=== PATIENT | male | born 1955 | race Caucasian/White ===

== ENCOUNTER 2022-02-15 21:03 | Inpatient (IN) | payer OTHER ==
[2022-02-15 23:55] LABS: Basophils % (A) 1 %; Eosinophils # (A) 0.2 k/uL (0-0.7); Eosinophils % (A) 4 %; HCT 41.5 % (39.0-53.0); HGB 13.7 gm/dL (13.0-17.5); Lymphocytes # (A) 0.8 k/uL (1.0-4.8); Lymphocytes % (A) 15 %; MCH 31.7 pg (25.0-35.0); MCV 96.1 fL (80.0-100.0); Mean Platelet Volume 6.8; Monocytes # (A) 0.4 k/uL (0-1.0); Monocytes % (A) 8 %; Neutrophils # (A) 3.8 k/uL (1.3-7.7); Neutrophils % (A) 70 %; Platelet Count 204 k/uL (150-450); RBC 4.32 m/uL (4.30-5.90); RDW 12.6 % (11.5-15.5); WBC 5.5 k/uL (3.8-10.6)
--- NOTE | 2022-02-15 23:56 | ED ---
Neuro HPI - General Chief Complaint: Neuro Symptoms/Deficit Stated Complaint: R sided numbness Time Seen by Provider: 02/15/22 22:35 Source: patient Mode of arrival: ambulatory - History of Present Illness Is the patient presenting with stroke symptoms?: Yes Initial Comments: 66-year-old male with no reported past medical history presents to the emergency department with right-sided numbness. He states that for the past 3 days his right arm, right leg and right side of his face have all been numb. He denies previous history of stroke area does admit to some weakness in these extremities. No visual changes. No speech difficulty. He denies any recent head trauma. No neck pain. No fevers. [place] today was the worst of his symptoms and this is what prompted ER evaluation. Denies any chest pain or shortness of breath. No abdominal pain. Patient is a daily drinker. 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 - Related Data Home Medications: Previous Rx's Medication Instructions Recorded Aspirin 81 mg PO DAILY #30 02/18/22 Atorvastatin [Lipitor] 20 mg PO HS #30 tab 02/18/22 Clopidogrel [Plavix] 75 mg PO DAILY #21 tab 02/18/22 Cyanocobalamin [Vitamin B-12] 1,000 mcg PO DAILY #30 tab 02/18/22 Folic Acid 1 mg PO DAILY #30 tab 02/18/22 Gabapentin [Neurontin] 100 mg PO TID #90 cap 02/18/22 Thiamine [Vitamin B-1] 100 mg PO BID-W/MEALS #60 tab 02/18/22 amLODIPine [Norvasc] 10 mg PO DAILY #30 tab 02/18/22 lisinopriL [Zestril] 5 mg PO DAILY #30 tab 02/18/22 Allergies/Adverse Reactions: Allergies Allergy/AdvReac Type Severity Reaction Status Date / Time No Known Allergies Allergy Verified 02/15/22 23:10 Review of Systems ROS Statement: Those systems with pertinent positive or pertinent negative responses have been documented in the HPI. ROS Other: All systems not noted in ROS Statement are negative. General Exam General appearance: alert, in no apparent distress Head exam: Present: atraumatic, normocephalic, normal inspection Eye exam: Present: normal appearance, PERRL, EOMI. Absent: scleral icterus, conjunctival injection, periorbital swelling ENT exam: Present: normal exam, mucous membranes moist Neck exam: Present: normal inspection. Absent: tenderness, meningismus, lymphadenopathy Respiratory exam: Present: normal lung sounds bilaterally. Absent: respiratory distress, wheezes, rales, rhonchi, stridor Cardiovascular Exam: Present: regular rate, normal rhythm, normal heart sounds. Absent: systolic murmur, diastolic murmur, rubs, gallop, clicks GI/Abdominal exam: Present: soft, normal bowel sounds. Absent: distended, tenderness, guarding, rebound, rigid Extremities exam: Present: normal inspection, full ROM, normal capillary refill. Absent: tenderness, pedal edema, joint swelling, calf tenderness Back exam: Present: normal inspection Neurological exam: Present: alert, oriented X3, CN II-XII intact Psychiatric exam: Present: normal affect, normal mood Skin exam: Present: warm, dry, intact, normal color. Absent: rash Stroke [facility] - Lab Data Result diagrams: 02/17/22 05:01 02/17/22 05:01 Lab Results 02/15/22 02/15/22 02/15/22 Range/Units 23:43 23:43 23:43 WBC 5.5 (3.8-10.6) k/uL RBC 4.32 (4.30-5.90) m/uL Hgb 13.7 (13.0-17.5) gm/dL Hct 41.5 (39.0-53.0) % MCV 96.1 (80.0-100.0) fL MCH 31.7 (25.0-35.0) pg MCHC 33.0 (31.0-37.0) g/dL RDW 12.6 (11.5-15.5) % Plt Count 204 (150-450) k/uL MPV 6.8 Neutrophils % 70 % Lymphocytes % 15 % Monocytes % 8 % Eosinophils % 4 % Basophils % 1 % Neutrophils # 3.8 (1.3-7.7) k/uL Lymphocytes # 0.8 L (1.0-4.8) k/uL Monocytes # 0.4 (0-1.0) k/uL Eosinophils # 0.2 (0-0.7) k/uL Basophils # 0.0 (0-0.2) k/uL PT 10.3 (9.0-12.0) sec INR 0.9 (<1.2) APTT 24.9 (22.0-30.0) sec Sodium 123 L (137-145) mmol/L Potassium 4.2 (3.5-5.1) mmol/L Chloride 92 L (98-107) mmol/L Carbon Dioxide 21 L (22-30) mmol/L Anion Gap 10 mmol/L BUN 8 L (9-20) mg/dL Creatinine 0.88 (0.66-1.25) mg/dL Est GFR (CKD-EPI)AfAm >90 (>60 ml/min/1.73 sqM) Est GFR (CKD-EPI)NonAf >90 (>60 ml/min/1.73 sqM) Glucose 124 H (74-99) mg/dL Calcium 8.6 (8.4-10.2) mg/dL Total Bilirubin 0.6 (0.2-1.3) mg/dL AST 27 (17-59) U/L ALT 16 (4-49) U/L Alkaline Phosphatase 77 (38-126) U/L Troponin I (0.000-0.034) ng/mL Total Protein 7.6 (6.3-8.2) g/dL Albumin 4.0 (3.5-5.0) g/dL 02/15/22 Range/Units 23:43 WBC (3.8-10.6) k/uL RBC (4.30-5.90) m/uL Hgb (13.0-17.5) gm/dL Hct (39.0-53.0) % MCV (80.0-100.0) fL MCH (25.0-35.0) pg MCHC (31.0-37.0) g/dL RDW (11.5-15.5) % Plt Count (150-450) k/uL MPV Neutrophils % % Lymphocytes % % Monocytes % % Eosinophils % % Basophils % % Neutrophils # (1.3-7.7) k/uL Lymphocytes # (1.0-4.8) k/uL Monocytes # (0-1.0) k/uL Eosinophils # (0-0.7) k/uL Basophils # (0-0.2) k/uL PT (9.0-12.0) sec INR (<1.2) APTT (22.0-30.0) sec Sodium (137-145) mmol/L Potassium (3.5-5.1) mmol/L Chloride (98-107) mmol/L Carbon Dioxide (22-30) mmol/L Anion Gap mmol/L BUN (9-20) mg/dL Creatinine (0.66-1.25) mg/dL Est GFR (CKD-EPI)AfAm (>60 ml/min/1.73 sqM) Est GFR (CKD-EPI)NonAf (>60 ml/min/1.73 sqM) Glucose (74-99) mg/dL Calcium (8.4-10.2) mg/dL Total Bilirubin (0.2-1.3) mg/dL AST (17-59) U/L ALT (4-49) U/L Alkaline Phosphatase (38-126) U/L Troponin I <0.012 (0.000-0.034) ng/mL Total Protein (6.3-8.2) g/dL Albumin (3.5-5.0) g/dL - Medical Decision Making Upon arrival patient was placed into room 17. Symptoms are 3 days old and therefore code stroke was not activated. He does have a score of 1 on the NIH scale due to his subjective sensory loss. IV is established and laboratory studies were conducted. Patient was over for a CT of his brain as well as CT angiography. Review the patient's labs demonstrates sodium of 123. He was given a liter bolus of normal saline started on [address] of the brain is negative for an acute process. Recommend admission. Spoke with Dr. Sousa who agreed to admit the patient. We'll place neurology on consult. Patient remained in stable condition awaiting a bed on the floor 02/15/22 23:56 EKG demonstrates sinus rhythm with rate of 82. Purulent: 58. QRS 93. QTC of 43. No acute ST segment elevations or depressions Past Medical History Past Medical History: No Reported History History of Any Multi-Drug Resistant Organisms: None Reported Past Surgical History: No Surgical Hx Reported Past Psychological History: No Psychological Hx Reported Smoking Status: Never smoker Past Alcohol Use History: Daily Past Drug Use History: None Reported - Past Family History Father Family Medical History: Congestive Heart Failure (CHF) Course Vital Signs 02/15/22 02/16/22 02/16/22 22:34 00:27 04:10 Temperature 98.2 F 98.2 F Pulse Rate 103 H 86 76 Respiratory 18 18 18 Rate Blood Pressure 203/92 183/86 173/83 O2 Sat by Pulse 97 97 98 Oximetry 02/16/22 06:20 Temperature Pulse Rate 73 Respiratory 18 Rate Blood Pressure 160/79 O2 Sat by Pulse 97 Oximetry Disposition Clinical Impression: Hyponatremia, Right sided numbness, CVA (cerebral vascular accident) Disposition: ADMITTED IP TO THIS [facility] Condition: Good Is patient prescribed a controlled substance at d/c from ED?: No Decision to Admit Reason: Admit from EC Decision Date: 02/16/22 Decision Time: 00:51
[2022-02-16 00:09] LABS: ALT 16 U/L (4-49); AST 27 U/L (17-59); African American GFR (CKD) >90 (>60 ml/min/1.73 sqM); Alkaline Phosphatase 77 U/L (38-126); Anion Gap 10 mmol/L; Blood Urea Nitrogen 8 mg/dL (9-20); Calcium 8.6 mg/dL (8.4-10.2); Carbon Dioxide 21 mmol/L (22-30); Chloride 92 mmol/L (98-107); Glucose 124 mg/dL (74-99); INR 0.9 (<1.2); Non-African American GFR(CKD) >90 (>60 ml/min/1.73 sqM); Partial Thromboplastin Time 24.9 sec (22.0-30.0); Potassium 4.2 mmol/L (3.5-5.1); Prothrombin Time 10.3 sec (9.0-12.0); Sodium 123 mmol/L (137-145); Total Bilirubin 0.6 mg/dL (0.2-1.3); Total Protein 7.6 g/dL (6.3-8.2)
--- NOTE | 2022-02-16 00:11 | CT ---
EXAMINATION TYPE: CT brain wo con DATE OF EXAM: 02/16/2022 COMPARISON: None HISTORY: rt sided numbness progressively getting worse CT DLP: 1091.2 mGycm Automated exposure control for dose reduction was used. There is cerebral mild cortical atrophy. There is no mass effect or midline shift. There is no sign o f intracranial hemorrhage. Calvarium is intact. IMPRESSION: Negative unenhanced head CT scan. Mild atrophy.
--- NOTE | 2022-02-16 00:30 | XR ---
EXAMINATION TYPE: XR chest 1V DATE OF EXAM: 02/16/2022 COMPARISON: NONE HISTORY: Right-sided numbness TECHNIQUE: Single view FINDINGS: Heart and mediastinum are normal. Lungs are clear. Diaphragm is normal. Bony thorax appears intact. There are chest leads. IMPRESSION: Normal chest.
[2022-02-16] MEDS ORDERED: SODIUM CHLORIDE 0.9% 1,000 ML IV ONE (00:45)
--- NOTE | 2022-02-16 00:45 | CT ---
EXAMINATION TYPE: CT angio head neck DATE OF EXAM: 02/16/2022 COMPARISON: None HISTORY: rt sided numbness progressively getting worse CT DLP: 422.7 mGycm Automated exposure control for dose reduction was used. CONTRAST: Performed with IV Contrast, patient injected with 65 mL of Isovue 370. Images obtained from the great vessels to the vertex of the brain with IV contrast. There are Three-D postprocessed images. FINDINGS: There is bilateral arterial flow in the subclavian arteries. There is arterial flow in the common int ernal and external carotid arteries bilaterally. There is arterial flow in both vertebral arteries. T here is plaque formation and approximate 25% stenosis at the origin right internal card artery. There is 50% stenosis at the origin right external carotid artery. There is mild plaque and 15% stenosis o rigin of the left internal carotid artery. There is no evidence of carotid or vertebral artery aneury sm or dissection. There is arterial flow in both distal internal coronary arteries. There is arterial flow in the anterior middle and posterior cerebral arteries bilaterally. No evidenc e of intracranial aneurysm or neovascularity. There is a diminutive A1 segment of the right anterior cerebral artery. The right anterior cerebral artery probably fills significantly through the anterior communicating artery. The posterior cerebral arteries appear to fill dominantly through the posterio r communicating arteries. There is normal enhancement of the venous sinuses. IMPRESSION: Mild plaque at the carotid artery bifurcations with luminal narrowing as above. No hemodynamic stenos is of the internal carotid arteries. There is significant luminal narrowing of the A1 segment right anterior cerebral artery which is almo st occluded. It is not clear if this is acquired stenosis or developmental.
[2022-02-16] MEDS ORDERED: NALOXONE 0.4 MG/ML 1 ML VIAL IV PRN (00:52)
[2022-02-16] MEDS: SODIUM CHLORIDE 0.9% 1,000 ML IV SCH ×2 (01:04→15:15)
[2022-02-16 01:14] LABS: Appearance,Urine Clear (Clear); Bilirubin,Urine Negative (Negative); Blood,Urine Negative (Negative); Color,Urine Light Yellow; Glucose,Urine (UA) Negative (Negative); Ketones,Urine Negative (Negative); Leukocyte Esterase,Urine Trace (Negative); Mucus,Urine Rare /hpf; Nitrite,Urine Negative (Negative); Protein,Urine Negative (Negative); RBC,Urine <1 /hpf (0-5); Specific Gravity,Urine 1.013 (1.001-1.035); Urobilinogen,Urine <2.0 mg/dL (<2.0); WBC,Urine 3 /hpf (0-5)
[2022-02-16] MEDS ORDERED: ASPIRIN 325 MG TAB PO STA (01:14)
[2022-02-16 01:22] LABS: Creatinine,Urine Random 23.3 mg/dL
--- NOTE | 2022-02-16 03:24 | P.HPIM ---
History of Present Illness H&P Date: 02/16/22 The patient is a 66-year-old male with no known PMH, who hasn't seen a physician for several years presents to the emergency room with complaints of right-sided numbness and tingling. The patient reported that his symptoms started roughly 3 days ago with intermittent right arm, right leg, and right lower lip numbness. He notes that the numbness became more persistent throughout the day yesterday, at which time he became alarmed and decided to come to the emergency room. Denied experiencing weakness, facial droop, speech impairment, difficulty swallowing. Reports some blurred vision on the right side. Denied headaches, neck pain, falls, impaired gait, or head injury. Reports that following presentation to the emergency room, his numbness of gradually improved. Denied experiencing chest discomfort, shortness of breath, fever, chills, cough or nausea, vomiting, abdominal pain, diarrhea. Denies any history of prior CVA. Reports drinking 10-12 beers daily but denies hospitalizations for his drinking, alcohol withdrawal seizures, or history of delirium tremens. The patient's NIH score in the emergency room was 1, and due to the delayed presentation, code stroke without activated. CT head and neck angiogram revealed mild plaque at the carotid artery bifurcations with luminal narrowing without any hemodynamic stenosis of the carotid arteries. There was also a near occlusion of a segment of the right anterior cerebral artery, unclear if acquired stenosis or developmental. CT brain was unremarkable. EKG revealed sinus rhythm at [address]/T-wave changes noted as reviewed by me. Chest x-ray was unremarkable. Laboratory evaluation revealed a sodium of 123, chloride 92, CO2 21, glucose of 124. Review of systems: Pertinent positives and negatives as discussed in HPI, a complete review of systems was performed and all other systems are negative. Physical examination: General: non toxic, no distress, appears at stated age, overweight Derm: no unusual rashes/lesions no unusual ecchymoses, warm, dry Head: atraumatic, normocephalic, symmetric Eyes: EOMI, no lid lag, anicteric sclera, pupils equal round reactive to light ENT: Nose and ears atraumatic, no thrush, no pharyngeal erythema Neck: No thyromegaly, no cervical lymphadenopathy, trachea midline, supple Mouth: no lip lesion, mucus membranes moist Cardiovascular: S1S2 reg, no murmur, positive posterior tibial pulse bilateral, no edema, capillary refill less than 2 seconds Lungs: CTA bilateral, no rhonchi, no rales , no accessory muscle use Abdominal: soft, nontender to palpation, no guarding, no appreciable organomegaly, normal bowel sounds Ext: no gross muscle atrophy, muscle strength 5 out of 5 in all 4 extremities grossly, no contractures, Neuro: CN II-XI grossly intact, light touch intact in all 4 extremities, finger to nose within normal limits,, no pronator drift Psych: Alert, oriented, appropriate affect Assessment/plan Rule out CVA -Neurology consult -Echocardiogram -Continue with aspirin, statin -Fall precautions Hyponatremia, hypochloremic -Follow up Hyponatremia workup -Suspected beer potomania -C/w IVFs EtOH abuse -CIWA protocol -Thiamine, IV fluids DVT prophylaxis -Heparin subq The patient is admitted with an anticipated greater than 2 midnight stay for dayna luation of CVA CODE STATUS: Full Code Discussed with: Patient Anticipated discharge date: 02/[address]: Home Past Medical History Past Medical History: No Reported History History of Any Multi-Drug Resistant Organisms: None Reported Past Surgical History: No Surgical Hx Reported Past Psychological History: No Psychological Hx Reported Smoking Status: Never smoker Past Alcohol Use History: Daily Past Drug Use History: None Reported - Past Family History Father Family Medical History: Congestive Heart Failure (CHF) Medications and Allergies Home Medications Medication Instructions Recorded Confirmed Type No Known Home Medications 02/15/22 02/15/22 History Allergies Allergy/AdvReac Type Severity Reaction Status Date / Time No Known Allergies Allergy Verified 02/15/22 23:10 Physical Exam Vitals: Vital Signs Temp Pulse Resp BP Pulse Ox 02/16/22 00:27 86 18 183/86 97 02/15/22 22:34 98.2 F 103 H 18 203/92 97 Intake and Output 02/15/22 02/15/22 02/16/22 14:59 22:59 06:59 Other: Weight 72.575 kg Results CBC & Chem 7: 02/15/22 23:43 02/15/22 23:43 Labs: Abnormal Lab Results - Last 24 Hours (Table) 02/15/22 02/15/22 02/16/22 Range/Units 23:43 23:43 00:55 Lymphocytes # 0.8 L (1.0-4.8) k/uL Sodium 123 L (137-145) mmol/L Chloride 92 L (98-107) mmol/L Carbon Dioxide 21 L (22-30) mmol/L BUN 8 L (9-20) mg/dL Glucose 124 H (74-99) mg/dL Osmolality (280-301) mosm/kg Ur Leukocyte Esterase Trace H (Negative) Urine Mucus Rare H (None) /hpf 02/16/22 Range/Units 00:55 Lymphocytes # (1.0-4.8) k/uL Sodium (137-145) mmol/L Chloride (98-107) mmol/L Carbon Dioxide (22-30) mmol/L BUN (9-20) mg/dL Glucose (74-99) mg/dL Osmolality 262 L (280-301) mosm/kg Ur Leukocyte Esterase (Negative) Urine Mucus (None) /hpf
[2022-02-16] MEDS ORDERED: LORazepam 2 MG/ML INJ IV PRN ×3 (03:25)
[2022-02-16] MEDS ORDERED: THIAMINE 100 MG/ML 2 ML VIAL IM STA (03:25)
[2022-02-16 06:17] LABS: African American GFR (CKD) >90 (>60 ml/min/1.73 sqM); Anion Gap 9 mmol/L; Blood Urea Nitrogen 7 mg/dL (9-20); Calcium 8.5 mg/dL (8.4-10.2); Carbon Dioxide 20 mmol/L (22-30); Chloride 100 mmol/L (98-107); Glucose 128 mg/dL (74-99); Non-African American GFR(CKD) 89 (>60 ml/min/1.73 sqM); Potassium 4.5 mmol/L (3.5-5.1); Sodium 129 mmol/L (137-145)
[2022-02-16] MEDS ORDERED: ASPIRIN 325 MG TAB PO SCH (09:00)
[2022-02-16] MEDS: hydrALAZINE HCL 25 MG TAB PO PRN ×2 (10:33→15:14)
[2022-02-16] MEDS: HEPARIN SODIUM,PORCINE/PF 5,000 UNIT/0.5 ML SYRINGE SQ SCH ×3 (10:33→23:42)
--- NOTE | 2022-02-16 10:56 | CA ---
Transthoracic Echo Report Name: Tung Arcos Age: 66 Gender: M : 1955 Exam Date: 02/16/2022 08:11 Exam Location: [facility] Ht (in): 65 Wt (lb): 160 Ordering Physician: Jackie Hillman MD Attending/Referring Phys: Noodle Maker Mary Sarah RDCS Procedure CPT: Indications: CVA Cardiac Hx: Technical Quality: Technically difficult study Contrast 1: Lumason Total Dose (mL): 1 Contrast 2: Total Dose (mL): MEASUREMENTS (Male / Female) Normal Values 2D ECHO LV Diastolic Diameter PLAX 2.8 cm 4.2 - 5.9 / 3.9 - 5.3 cm LV Systolic Diameter PLAX 2.1 cm IVS Diastolic Thickness 1.0 cm 0.6 - 1.0 / 0.6 - 0.9 cm LVPW Diastolic Thickness 1.2 cm 0.6 - 1.0 / 0.6 - 0.9 cm LV Relative Wall Thickness 0.8 LA Volume 46.8 cm??? 18 - 58 / 22 - 52 cm??? M-MODE Aortic Root Diameter MM 2.9 cm LA Systolic Diameter MM 2.4 cm LA Ao Ratio MM 0.8 MV E Point Septal Separation 2.4 cm AV Cusp Separation MM 2.2 cm DOPPLER AV Peak Velocity 150.0 cm/s AV Peak Gradient 9.0 mmHg AI Peak Velocity 364.4 cm/s AI Peak Gradient 53.1 mmHg AI Pressure Half Time 627.9 ms MV Area PHT 3.4 cm??? MR Peak Velocity 241.8 cm/s MR Peak Gradient 23.4 mmHg Mitral E Point Velocity 88.3 cm/s Mitral A Point Velocity 91.4 cm/s Mitral E to A Ratio 1.0 MV Deceleration Time 221.0 ms MV E' Velocity 7.2 cm/s Mitral E to MV E' Ratio 12.3 TR Peak Velocity 88.7 cm/s TR Peak Gradient 3.1 mmHg Right Ventricular Systolic Press 8.1 mmHg FINDINGS Left Ventricle Normal Left ventricular size, wall thickness, systolic function with no obvious regional wall motion abnormalities. Normal Left ventricular diastolic filling pattern. Left ventricular ejection fraction is estimated at 55-60 %. Right Ventricle The right ventricle is normal in size and function. Right Atrium The right atrium is normal in size. Left Atrium The left atrium is normal in size. Mitral Valve Structurally normal mitral valve without significant stenosis or prolapse. There is no mitral regurgitation. Aortic Valve Structurally normal aortic valve without significant sclerosis or stenosis. There is mild aortic regurgitation. Tricuspid Valve Structurally normal tricuspid valve without significant stenosis. Pulmonary artery systolic pressure is normal. Trace tricuspid regurgitation. Pulmonic Valve Structurally normal pulmonic valve without significant stenosis. There is no pulmonic regurgitation. Pericardium Normal pericardium without effusion. Aorta Normal aortic root dimension. CONCLUSIONS Normal LV systolic function Previewed by: Dr. George Soler MD (Electronically Signed) Final Date: 16 Feb 2022 10:55
--- NOTE | 2022-02-16 11:22 | P.CNNES ---
History of Present Illness Consult date: 02/16/22 Requesting physician: Nancy Riggins Reason for Consult: acute right sided weakness History of Present Illness: This is a 66-year-old gentleman with no known past medical history who presented emergency department on 02/15/2022 complaining of right-sided numbness and tingling. Patient's symptoms began about 3 days ago prior to present the hospital and started with intermittent right arm and leg as well as lower lip nu mbness and became more persistent 2 days ago and as a result the patient was alarmed and he decided to come to the emergency department. He also felt his entire right face is numb. Also the patient had some blurred vision over the right side. He denies of any weakness, difficulty swallowing, any speech difficulty. He denies of any neck pain, any head injury, any headache. He feels his symptoms are improving except continues to have right arm numbness. He has not seen a physician for several years. Denies history of stroke or TIA in past. He denies tobacco use. He drinks about 8 cans of beers a day (12 oz). Patient is not on any antiplatelets or anticoagulation. Some of the workup in the hospital consisted of: Initial vital signs blood pressure of 5 203/92 otherwise a blood pressure has been in the range of 160s to 180s systolic and diastolic in the 70s to 80s. Sodium on presentation is 123 and repeat is 129. CT of the head is reported as negative unenhanced head CT scan. Mild atrophy. I personally reviewed the CT of the head and I do not see any acute or subacute stroke but I feel the patient has an old appearing lacunar stroke over the right thalamus. There is no typical hemorrhage. CT angiography of the head and neck was reported as mild plaque at the carotid artery bifurcation with luminal narrowing. No hemodynamic stenosis of the internal carotid arteries. There is a significant luminal narrowing of the A1 segment of the right anterior cerebral artery which is almost occluded. It's not clear acquired stenosis or developmental. Patient did not receive IV TPA since the last known normal was about 3 days ago and the risk outweighed the benefits. Review of Systems Review of system: The 12 point system was reviewed and apparent positive and negative per HPI. Past Medical History Past Medical History: No Reported History History of Any Multi-Drug Resistant Organisms: None Reported Past Surgical History: No Surgical Hx Reported Past Psychological History: No Psychological Hx Reported Smoking Status: Never smoker Past Alcohol Use History: Daily Past Drug Use History: None Reported - Past Family History Father Family Medical History: Congestive Heart Failure (CHF) Medications and Allergies Home Medications Medication Instructions Recorded Confirmed Type No Known Home Medications 02/15/22 02/15/22 History Allergies Allergy/AdvReac Type Severity Reaction Status Date / Time No Known Allergies Allergy Verified 02/15/22 23:10 Physical Examination - Vital Signs Vital Signs: Vital Signs Temp Pulse Pulse Resp BP BP Pulse Ox 02/16/22 08:00 98.3 F 78 17 193/80 98 02/16/22 06:20 73 18 160/79 97 02/16/22 04:10 98.2 F 76 18 173/83 98 02/16/22 00:27 86 18 183/86 97 02/15/22 22:34 98.2 F 103 H 18 203/92 97 Intake and Output 02/15/22 02/16/22 02/16/22 22:59 06:59 14:59 Other: # Voids 1 Weight 72.575 kg GENERAL: The patient is lying in bed and is not in acute distress. CHEST: The heart rate is regular rate rhythm. No murmurs to auscultation. No carotid bruit bilaterally. LUNG: Clear to auscultation bilaterally no wheezing noted throughout. Not labored breathing. ABDOMEN/GI: Bowel sounds present in all 4 quadrants. No tenderness to palpation throughout. NEUROLOGICAL: Higher mental function: The patient is awake, alert, oriented to self, place and time. Patient is following commands. No aphasia and no neglect. Cranial nerves: The pupils are round, equal and reactive to light and accommodation. Visual guan are full to confrontation throughout. Extraocular movement is intact no nystagmus is noted. Facial sensation is normal to touch throughout. The facial strength is normal throughout. Hearing is normal bilaterally to hand rub. Tongue is midline and moved [id number] without any difficulty. No dysarthria is noted. Shoulder shrug is normal bilaterally. Motor: Gait is deferred. The strength is 5 over 5 throughout. Normal tone and bulk. Cerebellum: Normal finger to nose heel to fritz bilaterally. Sensation: Sensation is decreased to touch over the right arm. Otherwise normal to touch throughout. Reflexes (right/left): 2+ throughout. Plantars are downgoing bilaterally. Results - Laboratory Findings CBC and BMP: 02/15/22 23:43 02/16/22 04:25 Abnormal Lab Findings: Abnormal Labs 02/15/22 02/15/22 02/16/22 23:43 23:43 00:55 Lymphocytes # 0.8 L Sodium 123 L Chloride 92 L Carbon Dioxide 21 L BUN 8 L Glucose 124 H Osmolality Ur Leukocyte Esterase Trace H Urine Mucus Rare H 02/16/22 02/16/22 00:55 04:25 Lymphocytes # Sodium 129 L Chloride Carbon Dioxide 20 L BUN 7 L Glucose 128 H Osmolality 262 L Ur Leukocyte Esterase Urine Mucus Assessment and Plan Assessment: Acute Right sided paresthesia (entire right side even face that is improving except for right arm): Likely due to acute to subacute ischemic stroke (last normal was 3 days prior to presentation to hospital). No IV TPA since the patient is on side the window and the risk outweighed the benefit New onset hypertension Hyponatremia possibly due to alcohol use Alcohol use Patient has not followed up with physician for years Plan: In the ED the patient was given aspirin 325mg once there was started on aspirin 81 mg daily. I'll hold off starting on at at dual antiplatelets until we get the MRI of the brain back. Patient is on Lipitor 80 mg daily at bedtime I will go down to 40 mg daily at bedtime for secondary stroke prophylaxis. MRI of the brain is ordered by the primary team in addition I ordered MRA of the head since the patient had reported A1 segment narrowing and almost occlusion. 2-D echo is ordered and is pending. I ordered lipid panel, vitamin B12, folate and HbA1c. Consulted PT OT Continue neuro checks Placed on cardiac monitoring Patient is on thiamine 100 mg daily Patient is on Ativan for CIWA protocol. We'll defer the rest of the medical management to primary team On subcu heparin 5000 units every 8 hours for DVT prophylaxis The plan is discussed with the patient. Thank you for the consultation. Kenton Nicholas M.D. Neuro-Hospitalist Time with Patient: Greater than 30
[2022-02-16] MEDS ORDERED: ACETAMINOPHEN TAB 325 MG TAB PO PRN (15:01)
[2022-02-16 15:10] LABS: Chol/HDL Ratio 2.01 Ratio; LDL Cholesterol,Calculated 76.5 mg/dL (0.0-131.0); VLDL Calculation 11.38 mg/dL (5.00-40.00)
[2022-02-16] MEDS: THIAMINE 100 MG TAB PO SCH (18:13)
[2022-02-16] MEDS ORDERED: ATORVASTATIN 80 MG TAB PO SCH (21:00)
[2022-02-16] MEDS ORDERED: ATORVASTATIN 40 MG TAB PO SCH (21:00)
[2022-02-17] MEDS: SODIUM CHLORIDE 0.9% 1,000 ML IV SCH ×2 (01:12→16:10)
[2022-02-17] MEDS: THIAMINE 100 MG TAB PO SCH ×2 (08:11→16:09)
[2022-02-17] MEDS: ASPIRIN 81 MG PO SCH (08:11)
[2022-02-17] MEDS: hydrALAZINE HCL 25 MG TAB PO PRN (08:11)
[2022-02-17] MEDS: HEPARIN SODIUM,PORCINE/PF 5,000 UNIT/0.5 ML SYRINGE SQ SCH ×3 (08:11→22:53)
[2022-02-17] MEDS: CYANOCOBALAMIN 500 MCG TAB PO SCH (09:19)
[2022-02-17] MEDS: FOLIC ACID 1 MG TAB PO SCH (09:19)
[2022-02-17 09:23] LABS: Basophils # (A) 0.02 X 10*3/uL (0.00-0.10); Basophils % (A) 0.4 %; Eosinophils # (A) 0.24 X 10*3/uL (0.04-0.35); Eosinophils % (A) 4.4 %; HCT 40.4 % (39.6-50.0); HGB 13.6 g/dL (13.0-17.0); Immature Grans, Automated 0.4 %; Lymphocytes # (A) 1.03 X 10*3/uL (0.90-5.00); Lymphocytes % (A) 18.9 %; MCH 31.9 pg (27.0-32.0); MCHC 33.7 g/dL (32.0-37.0); MCV 94.8 fL (80.0-97.0); Monocytes # (A) 0.59 X 10*3/uL (0.20-1.00); Monocytes % (A) 10.8 %; NRBC Per 100 WBC 0 /100 WBCS (0.0-0.0); Neutrophils # (A) 3.54 X 10*3/uL (1.80-7.70); Neutrophils % (A) 65.1 %; Platelet Count 176 X 10*3/uL (140-440); RBC 4.26 X 10*6/uL (4.40-5.60); WBC 5.44 X 10*3/uL (4.50-10.00)
[2022-02-17 09:50] LABS: African American GFR (CKD) 91.8 (60.0-200.0); Anion Gap 10.4 mmol/L (10.00-18.00); BUN/Creat Ratio 9.8 Ratio (12.00-20.00); Blood Urea Nitrogen 9.8 mg/dL (9.0-27.0); Calcium 8.7 mg/dL (8.7-10.3); Carbon Dioxide 20.6 mmol/L (20.0-27.5); Non-African American GFR(CKD) 79.2 (60.0-200.0); Potassium 4.4 mmol/L (3.5-5.5)
--- NOTE | 2022-02-17 12:33 | MR ---
EXAMINATION TYPE: MR angio head wo con DATE OF EXAM: 02/17/2022 COMPARISON: CTA head 2 days ago HISTORY: Stroke TECHNIQUE: Time of flight images focusing on the [place] were performed without contrast.. 2-D and 3-D postprocessing imaging is performed on independent workstation and reviewed. FINDINGS: There is dominant left vertebral artery filling the basilar artery. There is hypoplastic or occluded distal right vertebral artery. No focal aneurysm in the posterior circulation. There is hyp oplastic right P1 segment. Filling of the right P2 segment due to patent right posterior commuting ar el[place]. Patent small caliber left posterior communicating artery. No significant focal stenosis. Anterior circulation shows hypoplastic right A1 segment with filling of A2 segment due to patent ante rior communicating artery. No significant focal stenosis or aneurysm in the anterior circulation is s een. IMPRESSION: Normal variant at level of [place]. No aneurysm at the level of the [place].
--- NOTE | 2022-02-17 12:36 | MR ---
EXAMINATION TYPE: MR brain wo con DATE OF EXAM: 02/17/2022 COMPARISON: CT brain 2 days ago HISTORY: Stroke. Acute onset neuro deficit on admission 2 days earlier TECHNIQUE: Multiplanar, multisequence imaging of the brain and brainstem is performed without IV cont rast. FINDINGS: Diffusion weighted images demonstrate no oval 7 x 5 mm lesion of increased signal on diffusion-weight ed images with diminished signal on ADC mapping showing T1 hypointensity and T2 hyperintensity involv ing the lateral aspect of the left thalamus consistent with evolving acute lacunar infarct image 140 series 305 for reference. There is mild to moderate ventricular and sulcal prominence. Some confluent areas of T2 hyperintensit y in the periventricular white matter are noted. Midline structures demonstrate normal morphology. The craniocervical junction appears within normal limits. Normal vascular flow voids are present. Mild mucosal thickening involving the ethmoid sinuses bilaterally. Mild to moderate mucosal thickening involving the inferior maxillary sinuses bilaterall y. Globes are intact bilaterally. IMPRESSION: 1. Evolving acute lacunar infarct left lateral thalamus. 2. Background [id number] diffuse cerebral atrophy and chronic small vessel ischemic change note d. 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
[2022-02-17] MEDS: lisinopriL 5 MG TAB PO SCH (13:31)
[2022-02-17] MEDS: amLODIPine 10 MG TAB PO SCH (13:31)
--- NOTE | 2022-02-17 13:35 | P.PN ---
Subjective Progress Note Date: 02/17/22 No new complaints. BPs a bit high today, added anti-HTNs. Gen: awake, alert HEENT: normocephalic, atraumatic, good hearing acuity, moist mucous membranes Resp: good air exchange, breathing comfortably with no accessory muscle use CVS: good distal perfusion x 4, GI: soft, NTTP, ND : no SPT, no CVAT, ortega catheter not present MSK: no pitting edema, no clubbing Neuro: non-focal, moving all extremities Psych: cooperative, euthymic mood Assessment/plan: Acute CVA -Neurology consult -Echocardiogram -Continue with aspirin, statin -Fall precautions Hyponatremia, hypochloremic -Follow up Hyponatremia workup -Suspected beer potomania -C/w IVFs EtOH abuse -CIWA protocol -Thiamine, IV fluids DVT prophylaxis -Heparin subq The patient is admitted with an anticipated greater than 2 midnight stay for evaluation of CVA CODE STATUS: Full Code Discussed with: Patient Anticipated discharge date: 02/[address]: Home Objective - Vital Signs Vital signs: Vital Signs Temp 97.7 F 02/17/22 13:25 Pulse 108 H 02/17/22 13:25 Resp 19 02/17/22 13:25 BP 203/88 02/17/22 13:25 Pulse Ox 98 02/17/22 13:25 Intake & Output 02/16/22 02/17/22 02/17/22 18:59 06:59 18:59 Other: # Voids 2 2 - Labs CBC & Chem 7: 02/17/22 05:01 02/17/22 05:01 Labs: Abnormal Lab Results - Last 24 Hours (Table) 02/16/22 02/16/22 02/16/22 Range/Units 00:55 04:25 04:25 RBC (4.40-5.60) X 10*6/uL MPV (9.5-12.2) fL Sodium (135-145) mmol/L BUN/Creatinine Ratio (12.00-20.00) Ratio Glucose (70-110) mg/dL Hemoglobin A1c (0.0-6.0) % HDL Cholesterol 87.10 H (40.00-60.00) mg/dL Folate 4.30 L (4.40-31.00) ng/mL Ur Random Sodium 37 L (40-220) mmol/L 02/16/22 02/17/22 02/17/22 Range/Units 04:25 05:01 05:01 RBC 4.26 L (4.40-5.60) X 10*6/uL MPV 9.0 L (9.5-12.2) fL Sodium 131 L (135-145) mmol/L BUN/Creatinine Ratio 9.80 L (12.00-20.00) Ratio Glucose 128 H (70-110) mg/dL Hemoglobin A1c 6.1 H (0.0-6.0) % HDL Cholesterol (40.00-60.00) mg/dL Folate (4.40-31.00) ng/mL Ur Random Sodium (40-220) mmol/L
--- NOTE | 2022-02-17 15:58 | P.PN ---
Subjective Progress Note Date: 02/17/22 The patient is seen at bedside and continues to have Paresthesia of the entire Right side from head to toe. Otherwise denies any other neurological deficits. He stated he does have history of hypertension but when was following-up with her former PCP he did not feel he received the proper management and was told his hypertension was not too high. He is in the process of seeing a new PCP. Objective - Vital Signs Vital signs: Vital Signs Temp 97.7 F 02/17/22 13:25 Pulse 108 H 02/17/22 13:25 Resp 19 02/17/22 13:25 BP 203/88 02/17/22 13:25 Pulse Ox 98 02/17/22 13:25 Intake & Output 02/16/22 02/17/22 02/17/22 18:59 06:59 18:59 Other: # Voids 2 2 - Exam GENERAL: The patient is lying in bed and is not in acute distress. NEUROLOGICAL: Higher mental function: The patient is awake, alert, oriented to self, place and time. Patient is following commands. No aphasia and no neglect. Cranial nerves: The pupils are round, equal and reactive to light and accommodation. Visual guan are full to confrontation throughout. Extraocular movement is intact no nystagmus is noted. Facial sensation is decreased to touch over the right side entirely. The facial strength is normal throughout. Hearing is normal bilaterally to hand rub. Tongue is midline and moved [id number] without any difficulty. No dysarthria is noted. Shoulder shrug is normal bilaterally. Motor: Gait is deferred. The strength is 5 over 5 throughout. Normal tone and bulk. Cerebellum: Normal finger to nose heel to fritz bilaterally. Sensation: Sensation is decreased to touch over entire right side. Otherwise normal to touch on left. Reflexes (right/left): 2+ throughout. Plantars are downgoing bilaterally. SOME OF THE WORK-UP: Lipid panel is triglyceride of 56, cholesterol 175, LDL 76, HDL of 87. Vitamin B12 is 304 which is considered low normal and the serum folate is 4.30 which is concerning deficient and the normal supposed to be between 4.40 and 31. Hemoglobin A1c is 6.1 CT of the head is reported as negative unenhanced head CT scan. Mild atrophy. I personally reviewed the CT of the head and I do not see any acute or subacute stroke but I feel the patient has an old appearing lacunar stroke over the right thalamus. There is no typical hemorrhage. CT angiography of the head and neck was reported as mild plaque at the carotid a rtery bifurcation with luminal narrowing. No hemodynamic stenosis of the internal carotid arteries. There is a significant luminal narrowing of the A1 segment of the right anterior cerebral artery which is almost occluded. It's not clear acquired stenosis or developmental. MRI of the brain is reported as evolving acute lacunar infarct in the left thalamus. Background mild to moderate diffuse cerebral atrophy and chronic small vessel ischemic changes noted. MRA of the head is reported as normal variant of the level of [place]. No aneurysm at the level [place] of [place]. Anterior circulation shows hypoplastic right A1 segment with filling of A2 segment due to the patent anterior com municating artery 2-D echo was reported as normal left ventricle systolic function. Left atrium is normal in size. Ejection fraction of 55-60%. - Labs CBC & Chem 7: 02/17/22 05:01 02/17/22 05:01 Labs: Abnormal Lab Results - Last 24 Hours (Table) 02/16/22 02/16/22 02/17/22 Range/Units 00:55 04:25 05:01 RBC 4.26 L (4.40-5.60) X 10*6/uL MPV 9.0 L (9.5-12.2) fL Sodium (135-145) mmol/L BUN/Creatinine Ratio (12.00-20.00) Ratio Glucose (70-110) mg/dL Hemoglobin A1c 6.1 H (0.0-6.0) % Ur Random Sodium 37 L (40-220) mmol/L 02/17/22 Range/Units 05:01 RBC (4.40-5.60) X 10*6/uL MPV (9.5-12.2) fL Sodium 131 L (135-145) mmol/L BUN/Creatinine Ratio 9.80 L (12.00-20.00) Ratio Glucose 128 H (70-110) mg/dL Hemoglobin A1c (0.0-6.0) % Ur Random Sodium (40-220) mmol/L Assessment and Plan Assessment: Acute left thalamic stroke (Right sided paresthesia (last normal was 3 days prior to presentation to hospital). Etiology due to patient risk factors (uncontrolled HTN, New onset borderline DM, heavy alcohol use). Uncontrolled hypertension Borderline DM: HbA1c: 6.1 Folate deficiency Heavy Alcohol use Plan: Continue aspirin 81 mg daily and started Plavix 75mg daily (both new). Patient to be on dual antiplatelets and after 21 days stop Plavix but continue ASA. Decreased Lipitor from 40mg to 20mg qhs. For folate deficieny placed on folic acid 1mg daily. Regarding low normal Vitamin B12 started on Vitamin B12 1000mcg daily. Regarding his paresthesia: Placed on Gabapentin 100mg 1 tab tid and continues to have symptoms can go up to 2 tab tid and then up to 3 tab tid. PT and OT consulted Continue neuro checks On cardiac monitoring Patient is on thiamine 100 mg daily Patient is on Ativan for CIWA protocol. We'll defer the rest of the medical management to primary team Patient was counseled on alcohol cessation. He was notified of monitoring his blood pressure at home. On subcu heparin 5000 units every 8 hours for DVT prophylaxis Upon discharge, recommend patient to follow-up with neurologist as outpatient within 1-2 weeks. The plan is discussed with the patient and his nurse. There is no further neurological work-up. Patient is clear for discharge once blood pressure is stabilized. Kenton Nicholas M.D. Neuro-Hospitalist Time with Patient: Less than 30
[2022-02-17] MEDS: CLOPIDOGREL 75 MG TAB PO SCH (16:09)
[2022-02-17] MEDS: GABAPENTIN 100 MG CAP PO SCH ×2 (16:09→21:50)
[2022-02-17] MEDS ORDERED: ATORVASTATIN 20 MG TAB PO SCH (21:00)
[2022-02-18] MEDS: GABAPENTIN 100 MG CAP PO SCH ×2 (08:06→15:35)
[2022-02-18] MEDS: HEPARIN SODIUM,PORCINE/PF 5,000 UNIT/0.5 ML SYRINGE SQ SCH ×2 (08:06→15:35)
[2022-02-18] MEDS: ASPIRIN 81 MG PO SCH (08:06)
[2022-02-18] MEDS: amLODIPine 10 MG TAB PO SCH (08:07)
[2022-02-18] MEDS: FOLIC ACID 1 MG TAB PO SCH (08:07)
[2022-02-18] MEDS: CYANOCOBALAMIN 500 MCG TAB PO SCH (08:07)
[2022-02-18] MEDS: lisinopriL 5 MG TAB PO SCH (08:07)
[2022-02-18] MEDS: CLOPIDOGREL 75 MG TAB PO SCH (08:07)
[2022-02-18] MEDS: THIAMINE 100 MG TAB PO SCH ×2 (08:07→15:35)
[2022-02-18] MEDS: SODIUM CHLORIDE 0.9% 1,000 ML IV SCH (11:46)
[2022-02-18 15:12] VITALS: BP 134/77; PULSE 83; RESP 21; TEMP 98.4
--- NOTE | 2022-02-18 17:15 | P.DS ---
Providers Date of admission: 02/16/22 00:52 Expected date of discharge: 02/18/22 Attending physician: Jackie Hillman MD Consults: 02/16/22 01:11 Consult Physician Urgent Consulting Provider: Kenton Nicholas Consult Reason/Comments: acute right sided weakness Do you want consulting provider notified?: Yes Primary care physician: Stated None Hospital Course: Acute CVA Hyponatremia, hypochloremic EtOH abuse The patient is a 66-year-old male with no known PMH, who hasn't seen a physician for several years presents to the emergency room with complaints of right-sided numbness and tingling. CT head and neck angiogram revealed mild plaque at the carotid artery bifurcations with luminal narrowing without any hemodynamic stenosis of the carotid arteries. There was also a near occlusion of a segment of the right anterior cerebral artery, unclear if acquired stenosis or developmental. CT brain was unremarkable. EKG revealed sinus rhythm at [address]/T-wave changes noted as reviewed by me. Chest x-ray was unremarkable. Laboratory evaluation revealed a sodium of 123, chloride 92, CO2 21, glucose of 124. MRI was done which showed an acute evolving lacunar stroke likely related to patient's uncontrolled hypertension. Patient had blood pressure medications titrated while he was in-house. Echocardiogram did not reveal PFO, normal ejection fraction, no wall motion abnormality. Hyponatremia improved with IV fluids. Patient did not require any Ativan for alcohol withdrawal. Patient will be discharged home with neurology and PCP follow-up. Gen: awake, alert HEENT: normocephalic, atraumatic, good hearing acuity, moist mucous membranes Resp: good air exchange, breathing comfortably with no accessory muscle use CVS: good distal perfusion x 4, GI: soft, NTTP, ND : no SPT, no CVAT, ortega catheter not present MSK: no pitting edema, no clubbing Neuro: non-focal, moving all extremities Psych: cooperative, euthymic mood I spent 35 minutes coordinating this complex discharge Patient Condition at Discharge: Good Plan - Discharge Summary Discharge Rx Participant: Yes New Discharge Prescriptions: New Folic Acid 1 mg PO DAILY #30 tab Gabapentin [Neurontin] 100 mg PO TID #90 cap Thiamine [Vitamin B-1] 100 mg PO BID-W/MEALS #60 tab Aspirin 81 mg PO DAILY #30 Atorvastatin [Lipitor] 20 mg PO HS #30 tab amLODIPine [Norvasc] 10 mg PO DAILY #30 tab Clopidogrel [Plavix] 75 mg PO DAILY #21 tab Cyanocobalamin [Vitamin B-12] 1,000 mcg PO DAILY #30 tab lisinopriL [Zestril] 5 mg PO DAILY #30 tab Discharge Medication List Aspirin 81 mg PO DAILY #30 02/18/22 [Rx] Atorvastatin [Lipitor] 20 mg PO HS #30 tab 02/18/22 [Rx] Clopidogrel [Plavix] 75 mg PO DAILY #21 tab 02/18/22 [Rx] Cyanocobalamin [Vitamin B-12] 1,000 mcg PO DAILY #30 tab 02/18/22 [Rx] Folic Acid 1 mg PO DAILY #30 tab 02/18/22 [Rx] Gabapentin [Neurontin] 100 mg PO TID #90 cap 02/18/22 [Rx] Thiamine [Vitamin B-1] 100 mg PO BID-W/MEALS #60 tab 02/18/22 [Rx] amLODIPine [Norvasc] 10 mg PO DAILY #30 tab 02/18/22 [Rx] lisinopriL [Zestril] 5 mg PO DAILY #30 tab 02/18/22 [Rx] Follow up Appointment(s)/Referral(s): Reji Saenz DO [STAFF PHYSICIAN] - 1-2 Days Patient Instructions/Handouts: Hyponatremia (DC), Paresthesia (GEN) Discharge Disposition: HOME SELF-CARE
== END 2022-02-18 17:02 | disposition home or self-care (01) | DRG 65 ==
LOC: EC 21:03 → 5NMEDONC 02-16 00:52 → 4SSUR 02-16 03:54
PROVIDERS: ADMIT Internal Medicine; ATTEND Internal Medicine
DX: I63.81 Other cerebral infarction due to occlusion or stenosis of small artery (principal); E87.1 Hypo-osmolality and hyponatremia; R73.03 Prediabetes; E53.8 Deficiency of other specified B group vitamins; E87.8 Other disorders of electrolyte and fluid balance, not elsewhere classified; R20.0 Anesthesia of skin; F10.10 Alcohol abuse, uncomplicated; I10 Essential (primary) hypertension; Z79.02 Long term (current) use of antithrombotics/antiplatelets; Z79.82 Long term (current) use of aspirin; Z82.49 Family history of ischemic heart disease and other diseases of the circulatory system; Z86.73 Personal history of transient ischemic attack (TIA), and cerebral infarction without residual deficits; R29.701 NIHSS score 1; Z28.310 Unvaccinated for COVID-19
CPT/HCPCS: 36415; 70450; 70496; 70498; 70544; 70551; 71045; 80048; 80053; 80061; 81001; 82570; 82607; 82746; 83036; 83930; 83935; 84300; 84484; 85025; 85610; 85730; 93005; 93306; 96360; 96361; 99285

== ENCOUNTER 2022-10-23 18:21 | Inpatient (IN) | payer MEDICARE, OTHER ==
[2022-10-23] MEDS ORDERED: VANCOMYCIN IV PER PHARMACY 1 EACH MISC MISCELLANE PRN (18:49)
[2022-10-23] MEDS ORDERED: SODIUM CHLORIDE 0.9% 1,000 ML IV ONE (18:51)
[2022-10-23 19:26] LABS: Basophils # (A) 0.1 k/uL (0-0.2); Basophils % (A) 1 %; Eosinophils # (A) 0.6 k/uL (0-0.7); Eosinophils % (A) 9 %; HCT 39.1 % (39.0-53.0); Lymphocytes # (A) 0.9 k/uL (1.0-4.8); Lymphocytes % (A) 13 %; MCHC 33.2 g/dL (31.0-37.0); MCV 93.4 fL (80.0-100.0); Monocytes # (A) 0.3 k/uL (0-1.0); Monocytes % (A) 4 %; Neutrophils # (A) 4.9 k/uL (1.3-7.7); Neutrophils % (A) 71 %; Platelet Count 273 k/uL (150-450); RBC 4.19 m/uL (4.30-5.90); RDW 13.1 % (11.5-15.5); WBC 6.9 k/uL (3.8-10.6)
[2022-10-23] MEDS ORDERED: VANCOMYCIN 1,500 MG in SODIUM CHLORIDE 0.9% 500 ML 500 ML IVPB ONE (19:30)
--- NOTE | 2022-10-23 19:48 | ED ---
Skin/Abscess/FB HPI - General Chief complaint: Skin/Abscess/Foreign Body Stated complaint: rash Time Seen by Provider: 10/23/22 18:41 Source: patient Mode of arrival: ambulatory Limitations: no limitations - History of Present Illness Initial comments: Patient is a 67-year-old male presenting with chief complaint of red and painful rash to the bilateral lower extremities. Patient states it has been worsening for the last month. He was seen at [facility] on 10/18 and started on Keflex for treatment of cellulitis. Rash has been worsening and today it is painful. He denies any fever, chest pain, difficulty breathing, nausea, vomiting, abdominal pain, joint swelling, numbness, tingling, weakness. - Related Data Home Medications Medication Instructions Recorded Confirmed Cephalexin [Keflex] 500 mg PO Q6HR 10/23/22 10/23/22 Cholecalciferol (Vitamin D3) 125 mcg PO DAILY 10/23/22 10/23/22 [Vitamin D3 (125 MCG = 5,000 IU)] Furosemide [Lasix] 20 mg PO DAILY PRN 10/23/22 10/23/22 Gabapentin [Neurontin] 200 mg PO HS 10/23/22 10/23/22 Nystatin 100,000Unit/gm Cream 1 applic TOPICAL BID 10/23/22 10/23/22 [Mycostatin Cream] metFORMIN HCL [Glucophage] 500 mg PO BID 10/23/22 10/23/22 Previous Rx's Medication Instructions Recorded Aspirin 81 mg PO DAILY #30 02/18/22 Atorvastatin [Lipitor] 20 mg PO HS #30 tab 02/18/22 Clopidogrel [Plavix] 75 mg PO DAILY #21 tab 02/18/22 Folic Acid 1 mg PO DAILY #30 tab 02/18/22 Thiamine [Vitamin B-1] 100 mg PO BID-W/MEALS #60 tab 02/18/22 amLODIPine [Norvasc] 10 mg PO DAILY #30 tab 02/18/22 lisinopriL [Zestril] 5 mg PO DAILY #30 tab 02/18/22 Allergies Allergy/AdvReac Type Severity Reaction Status Date / Time No Known Allergies Allergy Verified 10/23/22 21:52 Review of Systems ROS Statement: Those systems with pertinent positive or pertinent negative responses have been documented in the HPI. ROS Other: All systems not noted in ROS Statement are negative. Past Medical History Past Medical History: CVA/TIA, Hypertension History of Any Multi-Drug Resistant Organisms: None Reported Past Surgical History: No Surgical Hx Reported Past Anesthesia/Blood Transfusion Reactions: No Reported Reaction Past Psychological History: No Psychological Hx Reported Smoking Status: Never smoker Past Alcohol Use History: Daily, Heavy Past Drug Use History: None Reported - Past Family History Father Family Medical History: Congestive Heart Failure (CHF) General Exam Limitations: no limitations General appearance: alert, in no apparent distress Head exam: Present: atraumatic, normocephalic, normal inspection Eye exam: Present: normal appearance Neck exam: Present: normal inspection, full ROM Respiratory exam: Present: normal lung sounds bilaterally. Absent: respiratory distress, wheezes, rales, rhonchi, stridor Cardiovascular Exam: Present: regular rate, normal rhythm, normal heart sounds. Absent: systolic murmur, diastolic murmur, rubs, gallop, clicks Neurological exam: Present: alert, oriented X3, CN II-XII intact Psychiatric exam: Present: normal affect, normal mood Skin exam: Present: warm, erythema Course Vital Signs 10/23/22 10/23/22 10/23/22 18:24 20:00 21:00 Temperature 98 F Pulse Rate 90 92 83 Respiratory 22 16 16 Rate Blood Pressure 146/77 112/61 118/75 O2 Sat by Pulse 99 100 99 Oximetry Medical Decision Making - Medical Decision Making Was pt. sent in by a medical professional or institution ([facility] Encinas, RN NAVIGATOR, urgent care, hospital, or skilled nursing...) When possible be specific @ -No Did you speak to anyone other than the patient for history (EMS, parent, family, police, friend...)? What history was obtained from this source @ -Family member Did you review nursing and triage notes (agree or disagree)? Why? @ -I reviewed and agree with nursing and triage notes Were old charts reviewed (outside hosp., previous admission, EMS record, old EKG, old radiological studies, urgent care reports/EKG's, skilled nursing records)? Report findings @ -No old charts were reviewed Differential Diagnosis (chest pain, altered mental status, abdominal pain women, abdominal pain men, vaginal bleeding, weakness, fever, dyspnea, syncope, headache, dizziness, GI bleed, back pain, seizure, CVA, palpatations, mental health)? @ -Differential includes cellulitis, ALLERGIC reaction, dermatitis, this is not an all inclusive list EKG interpreted by me (3pts min.). @ -As above X-rays interpreted by me (1pt min.). @ -None done CT interpreted by me (1pt min.). @ -None done U/S interpreted by me (1pt. min.). @ -None done What testing was considered but not performed or refused? (CT, X-rays, U/S, labs)? Why? @ -None What meds were considered but not given or refused? Why? @ -None Did you discuss the management of the patient with other professionals (professionals i.e. Dr., PA, RN NAVIGATOR, lab, RT, psych nurse, social work manager, assistant manager/embalmer, teacher, chief creative officer, community case manager)? Give summary @ -Discussed with admitting provider Kadie Jesus from [facility] Was smoking cessation discussed for >3mins.? @ -No Was critical care preformed (if so, how long)? @ -No Were there social determinants of health that impacted care today? How? (Homelessness, low income, unemployed, alcoholism, drug addiction, transportation, low edu. Level, literacy, decrease access to med. care, [place] [facility], rehab)? @ -No Was there de-escalation of care discussed even if they declined (Discuss DNR or withdrawal of care, Hospice)? DNR status @ -No What co-morbidities impacted this encounter? (DM, HTN, Smoking, COPD, CAD, Cancer, CVA, ARF, Chemo, Hep., AIDS, mental health diagnosis, sleep apnea, morbid obesity)? @ -None Was patient admitted / discharged? Hospital course, mention meds given and route, prescriptions, significant lab abnormalities, going to OR and other pertinent info. @ -Patient is a 67-year-old male presenting with chief complaint of redness to the bilateral lower extremities. Symptoms have been ongoing for the last month, has been gradually worsening. Patient states that they're painful today than usual. He has been on Keflex for the last 5 days. Skin changes appear cellulitic bilaterally. WBC 16.9. Sodium 129 and lactic acid is 2.4, patient is receiving IV fluids. Patient received a dose of vancomycin and cefazolin. I spoke with Kadie Jesus from [facility] was accepted admission. Infectious disease was consulted per her request. Patient was agreeable with admission. I discussed this case my attending Dr. Mullins. Undiagnosed new problem with uncertain prognosis? @ -No Drug Therapy requiring intensive monitoring for toxicity (Heparin, Nitro, Insulin, Cardizem)? @ -No Were any procedures done? @ -No Diagnosis/symptom? @ -Cellulitis Acute, or Chronic, or Acute on Chronic? @ -Acute Uncomplicated (without systemic symptoms) or Complicated (systemic symptoms)? @ -Uncomplicated Side effects of treatment? @ -No Exacerbation, Progression, or Severe Exacerbation? @ -No Poses a threat to life or bodily function? How? (Chest pain, USA, CT, pneumonia, PE, COPD, DKA, ARF, appy, cholecystitis, CVA, Diverticulitis, Homicidal, Suicidal, threat to staff... and all critical care pts) @ -Yes - Lab Data Result diagrams: 10/23/22 19:21 10/23/22 19:21 Lab Results 10/23/22 10/23/22 10/23/22 Range/Units 19:21 19:21 19:21 WBC 6.9 (3.8-10.6) k/uL RBC 4.19 L (4.30-5.90) m/uL Hgb 13.0 (13.0-17.5) gm/dL Hct 39.1 (39.0-53.0) % MCV 93.4 (80.0-100.0) fL MCH 31.0 (25.0-35.0) pg MCHC 33.2 (31.0-37.0) g/dL RDW 13.1 (11.5-15.5) % Plt Count 273 (150-450) k/uL MPV 7.0 Neutrophils % 71 % Lymphocytes % 13 % Monocytes % 4 % Eosinophils % 9 % Basophils % 1 % Neutrophils # 4.9 (1.3-7.7) k/uL Lymphocytes # 0.9 L (1.0-4.8) k/uL Monocytes # 0.3 (0-1.0) k/uL Eosinophils # 0.6 (0-0.7) k/uL Basophils # 0.1 (0-0.2) k/uL Sodium 129 L (137-145) mmol/L Potassium 4.0 (3.5-5.1) mmol/L Chloride 95 L (98-107) mmol/L Carbon Dioxide 24 (22-30) mmol/L Anion Gap 10 mmol/L BUN 13 (9-20) mg/dL Creatinine 1.18 (0.66-1.25) mg/dL Est GFR (CKD-EPI)AfAm 74 (>60 ml/min/1.73 sqM) Est GFR (CKD-EPI)NonAf 64 (>60 ml/min/1.73 sqM) Glucose 110 H (74-99) mg/dL Lactic Ac Sepsis Rflx Plasma Lactic Acid Tom 2.4 H* (0.7-2.0) mmol/L Calcium 8.8 (8.4-10.2) mg/dL Total Bilirubin 0.4 (0.2-1.3) mg/dL AST 18 (17-59) U/L ALT 13 (4-49) U/L Alkaline Phosphatase 75 (38-126) U/L Total Protein 7.2 (6.3-8.2) g/dL Albumin 4.0 (3.5-5.0) g/dL 10/23/22 Range/Units 20:00 WBC (3.8-10.6) k/uL RBC (4.30-5.90) m/uL Hgb (13.0-17.5) gm/dL Hct (39.0-53.0) % MCV (80.0-100.0) fL MCH (25.0-35.0) pg MCHC (31.0-37.0) g/dL RDW (11.5-15.5) % Plt Count (150-450) k/uL MPV Neutrophils % % Lymphocytes % % Monocytes % % Eosinophils % % Basophils % % Neutrophils # (1.3-7.7) k/uL Lymphocytes # (1.0-4.8) k/uL Monocytes # (0-1.0) k/uL Eosinophils # (0-0.7) k/uL Basophils # (0-0.2) k/uL Sodium (137-145) mmol/L Potassium (3.5-5.1) mmol/L Chloride (98-107) mmol/L Carbon Dioxide (22-30) mmol/L Anion Gap mmol/L BUN (9-20) mg/dL Creatinine (0.66-1.25) mg/dL Est GFR (CKD-EPI)AfAm (>60 ml/min/1.73 sqM) Est GFR (CKD-EPI)NonAf (>60 ml/min/1.73 sqM) Glucose (74-99) mg/dL Lactic Ac Sepsis Rflx Y Plasma Lactic Acid Tom (0.7-2.0) mmol/L Calcium (8.4-10.2) mg/dL Total Bilirubin (0.2-1.3) mg/dL AST (17-59) U/L ALT (4-49) U/L Alkaline Phosphatase (38-126) U/L Total Protein (6.3-8.2) g/dL Albumin (3.5-5.0) g/dL Disposition Clinical Impression: Cellulitis Disposition: ADMITTED IP TO THIS HOSP Condition: Good Time of Disposition: 20:07 Decision to Admit Reason: Admit from EC Decision Date: 10/23/22 Decision Time: 20:07
[2022-10-23 19:53] LABS: Calcium 8.8 mg/dL (8.4-10.2); Total Bilirubin 0.4 mg/dL (0.2-1.3); Total Protein 7.2 g/dL (6.3-8.2)
[2022-10-23] MEDS ORDERED: KETOROLAC 15 MG/ML 1 ML VIAL IVP PRN (20:28)
[2022-10-23] MEDS ORDERED: ACETAMINOPHEN TAB 325 MG TAB PO PRN (20:28)
[2022-10-23] MEDS ORDERED: NALOXONE 0.4 MG/ML 1 ML VIAL IV PRN (20:28)
[2022-10-23] MEDS ORDERED: IBUPROFEN 400 MG TAB PO PRN (20:28)
[2022-10-23] MEDS: SODIUM CHLORIDE 0.9% 1,000 ML IV SCH (21:00)
[2022-10-24 05:30] LABS: African American GFR (CKD) >90 (>60 ml/min/1.73 sqM); Anion Gap 6 mmol/L; Blood Urea Nitrogen 11 mg/dL (9-20); Calcium 8.3 mg/dL (8.4-10.2); Carbon Dioxide 22 mmol/L (22-30); Chloride 103 mmol/L (98-107); Glucose 120 mg/dL (74-99); Non-African American GFR(CKD) 88 (>60 ml/min/1.73 sqM); Potassium 4.2 mmol/L (3.5-5.1); Sodium 131 mmol/L (137-145)
[2022-10-24] MEDS: VANCOMYCIN 1,250 MG in SODIUM CHLORIDE 0.9% 250 ML IVPB SCH ×2 (08:16→21:05)
[2022-10-24] MEDS ORDERED: NYSTAT-TRIAMCIN 100,000-0.1 UNIT/GM-% CREAM 30 GM TUBE TOPICAL SCH (13:00)
[2022-10-24] MEDS ORDERED: FUROSEMIDE 20 MG TAB PO PRN (13:10)
[2022-10-24] MEDS ORDERED: DEXTROSE 50% SYRINGE 50 ML IVP PRN ×2 (13:13)
--- NOTE | 2022-10-24 13:19 | P.HPIM ---
History of Present Illness H&P Date: 10/24/22 History of present illness; patient is 67-year-old gentleman with past medical significant for hypertension, diabetes mellitus who presented to the ER because of a rash of lower extremities. Patient has been on Keflex outpatient for treatment of cellulitis but states that has been worsening. Denies any fever or chills. Does complain of itchiness over lower extremities. Patient also has some rash over his back and front of chest. 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 Patient was started IV antibiotics and was admitted to hospitalist service. REVIEW OF SYSTEMS: CONSTITUTIONAL: No fever, no malaise, no fatigue. HEENT: No recent visual problems or hearing problems. Denied any sore throat. CARDIOVASCULAR: No chest pain, orthopnea, PND, no palpitations, no syncope. PULMONARY: No shortness of breath, no cough, no hemoptysis. GASTROINTESTINAL: No diarrhea, no nausea, no vomiting, no abdominal pain. NEUROLOGICAL: No headaches, no weakness, no numbness. HEMATOLOGICAL: Denies any bleeding or petechiae. GENITOURINARY: Denies any burning micturition, frequency, or urgency. MUSCULOSKELETAL/RHEUMATOLOGICAL: Denies any joint pain, swelling, or any muscle pain. ENDOCRINE: Denies any polyuria or polydipsia. The rest of the 14-point review of systems is negative. PHYSICAL EXAMINATION: GENERAL: The patient is alert and oriented x3, not in any acute distress. Well developed, well nourished. HEENT: Pupils are round and equally reacting to light. EOMI. No scleral icterus. No conjunctival pallor. Normocephalic, atraumatic. No pharyngeal erythema. No thyromegaly. CARDIOVASCULAR: S1 and S2 present. No murmurs, rubs, or gallops. PULMONARY: Chest is clear to auscultation, no wheezing or crackles. ABDOMEN: Soft, nontender, nondistended, normoactive bowel sounds. No palpable organomegaly. MUSCULOSKELETAL: No joint swelling or deformity. EXTREMITIES: Erythema of lower extremities bilaterally over the calf area NEUROLOGICAL: Gross neurological examination did not reveal any focal deficits. SKIN: Rash present over the back and front of chest, no erythema Assessment and plan bilateral lower extremity cellulitis Skin rash [id number] diabetes mellitus Hypertension Hyponatremia Plan; Monitor vital signs Monitor CBC Follow-up on blood cultures Continue vancomycin Consult ID Consulted dermatology : Past Medical History Past Medical History: CVA/TIA, Hypertension History of Any Multi-Drug Resistant Organisms: None Reported Past Surgical History: No Surgical Hx Reported Additional Past Surgical History / Comment(s): bilateral cataract surgery Past Anesthesia/Blood Transfusion Reactions: No Reported Reaction Past Psychological History: No Psychological Hx Reported Smoking Status: Never smoker Past Alcohol Use History: Daily, Heavy Past Drug Use History: None Reported - Past Family History Father Family Medical History: Congestive Heart Failure (CHF) Medications and Allergies Home Medications Medication Instructions Recorded Confirmed Type Aspirin 81 mg PO DAILY #30 02/18/22 10/23/22 Rx Atorvastatin [Lipitor] 20 mg PO HS #30 tab 02/18/22 10/23/22 Rx Clopidogrel [Plavix] 75 mg PO DAILY #21 tab 02/18/22 10/23/22 Rx Folic Acid 1 mg PO DAILY #30 tab 02/18/22 10/23/22 Rx Thiamine [Vitamin B-1] 100 mg PO BID-W/MEALS #60 tab 02/18/22 10/23/22 Rx amLODIPine [Norvasc] 10 mg PO DAILY #30 tab 02/18/22 10/23/22 Rx lisinopriL [Zestril] 5 mg PO DAILY #30 tab 02/18/22 10/23/22 Rx Cephalexin [Keflex] 500 mg PO Q6HR 10/23/22 10/23/22 History Cholecalciferol (Vitamin D3) 125 mcg PO DAILY 10/23/22 10/23/22 History [Vitamin D3 (125 MCG = 5,000 IU)] Furosemide [Lasix] 20 mg PO DAILY PRN 10/23/22 10/23/22 History Gabapentin [Neurontin] 200 mg PO HS 10/23/22 10/23/22 History Nystatin 100,000Unit/gm Cream 1 applic TOPICAL BID 10/23/22 10/23/22 History [Mycostatin Cream] metFORMIN HCL [Glucophage] 500 mg PO BID 10/23/22 10/23/22 History Allergies Allergy/AdvReac Type Severity Reaction Status Date / Time No Known Allergies Allergy Verified 10/23/22 21:52 Physical Exam Vitals: Vital Signs Temp Pulse Pulse Resp BP BP Pulse Ox 10/24/22 11:51 98.6 F 73 18 122/70 99 10/24/22 06:49 98.3 F 73 20 110/54 99 10/24/22 02:37 98.7 F 87 18 115/53 100 10/23/22 21:00 83 16 118/75 99 10/23/22 20:00 92 16 112/61 100 10/23/22 18:24 98 F 90 22 146/77 99 Intake and Output 10/23/22 10/24/22 10/24/22 22:59 06:59 14:59 Intake Total 450 Balance 450 Intake: Oral 450 Other: Voiding Method Toilet Toilet # Voids 2 Weight 72.575 kg Results CBC & Chem 7: 10/23/22 19:21 10/24/22 04:57 Labs: Abnormal Lab Results - Last 24 Hours (Table) 10/23/22 10/23/22 10/23/22 Range/Units 19:21 19:21 19:21 RBC 4.19 L (4.30-5.90) m/uL Lymphocytes # 0.9 L (1.0-4.8) k/uL Sodium 129 L (137-145) mmol/L Chloride 95 L (98-107) mmol/L Glucose 110 H (74-99) mg/dL Plasma Lactic Acid Tom 2.4 H* (0.7-2.0) mmol/L Calcium (8.4-10.2) mg/dL 10/24/22 Range/Units 04:57 RBC (4.30-5.90) m/uL Lymphocytes # (1.0-4.8) k/uL Sodium 131 L (137-145) mmol/L Chloride (98-107) mmol/L Glucose 120 H (74-99) mg/dL Plasma Lactic Acid Tom (0.7-2.0) mmol/L Calcium 8.3 L (8.4-10.2) mg/dL Thrombosis Risk Factor Assmnt - Choose All That Apply Any of the Below Risk Factors Present?: Yes Each Factor Represents 1 point: Obesity (BMI >25) Other Risk Factors: Yes Each Risk Factor Represents 2 Points: Age 61-74 years Other congenital or acquired thrombophilia - If yes, enter type in comment: No Thrombosis Risk Factor Assessment Total Risk Factor Score: 3 Thrombosis Risk Factor Assessment Level: Moderate Risk
[2022-10-24] MEDS: NYSTATIN 100,000UNIT/GM CREAM 30 GM TUBE TOPICAL SCH ×2 (14:31→21:05)
[2022-10-24] MEDS: TRIAMCINOLONE 0.1% CREAM 80 GM TUBE TOPICAL SCH ×2 (14:31→21:05)
[2022-10-24] MEDS: FLUCONAZOLE 100 MG TAB PO SCH (14:31)
[2022-10-24 17:11] LABS: Glucose,Whole Blood 124 mg/dL (70-110)
[2022-10-24] MEDS: INSULIN ASPART (NovoLOG) 100 UNIT/ML VIAL SQ SCH ×2 (17:13→21:04)
[2022-10-24] MEDS: THIAMINE 100 MG TAB PO SCH (17:23)
[2022-10-24] MEDS: SODIUM CHLORIDE 0.9% 1,000 ML IV SCH (17:25)
[2022-10-24 18:08] LABS: Rheumatoid Factor, Qnt <10 IU/mL (0-15)
[2022-10-24 20:13] LABS: Glucose,Whole Blood 201 mg/dL (70-110)
--- NOTE | 2022-10-24 20:48 | P.CONS ---
History of Present Illness - Reason for Consult Consult date: 10/24/22 - History of Present Illness Patient is a 67-year-old male with a past medical history significant for CVA/TIA patient also have a history of hypertension patient apparently started having a rash/erythema to bilateral lower extremity for the patient has been treated with oral Keflex without any improvement followed with the patient presented to hospital patient complaining of erythematous rash in bilateral lowe r extremity that has been there for more than a week or 2 now patient becomes setting of itching associated with the rash he did have dry scaly skin but no open wound or any purulent drainage patient also developed similar rash on his posterior back and upper chest area, patient currently denies having any lesion in his mouth or any difficulty swallowing and no joint swelling patient on presentation to hospital was afebrile. She did have a normal white count patient was started on vancomycin and admitted to the hospital infectious disease was consulted for management of rash and antibiotic therapy patient has been on multiple medication including lisinopril however the patient mentioned has been on them for a couple of months now and no recent new medication before his rash and itching started Past Medical History Past Medical History: CVA/TIA, Hypertension History of Any Multi-Drug Resistant Organisms: None Reported Past Surgical History: No Surgical Hx Reported Additional Past Surgical History / Comment(s): bilateral cataract surgery Past Anesthesia/Blood Transfusion Reactions: No Reported Reaction Past Psychological History: No Psychological Hx Reported Smoking Status: Never smoker Past Alcohol Use History: Daily, Heavy Past Drug Use History: None Reported - Past Family History Father Family Medical History: Congestive Heart Failure (CHF) Medications and Allergies Home Medications Medication Instructions Recorded Confirmed Type Aspirin 81 mg PO DAILY #30 02/18/22 10/23/22 Rx Atorvastatin [Lipitor] 20 mg PO HS #30 tab 02/18/22 10/23/22 Rx Clopidogrel [Plavix] 75 mg PO DAILY #21 tab 02/18/22 10/23/22 Rx Folic Acid 1 mg PO DAILY #30 tab 02/18/22 10/23/22 Rx Thiamine [Vitamin B-1] 100 mg PO BID-W/MEALS #60 tab 02/18/22 10/23/22 Rx amLODIPine [Norvasc] 10 mg PO DAILY #30 tab 02/18/22 10/23/22 Rx lisinopriL [Zestril] 5 mg PO DAILY #30 tab 02/18/22 10/23/22 Rx Cephalexin [Keflex] 500 mg PO Q6HR 10/23/22 10/23/22 History Cholecalciferol (Vitamin D3) 125 mcg PO DAILY 10/23/22 10/23/22 History [Vitamin D3 (125 MCG = 5,000 IU)] Furosemide [Lasix] 20 mg PO DAILY PRN 10/23/22 10/23/22 History Gabapentin [Neurontin] 200 mg PO HS 10/23/22 10/23/22 History Nystatin 100,000Unit/gm Cream 1 applic TOPICAL BID 10/23/22 10/23/22 History [Mycostatin Cream] metFORMIN HCL [Glucophage] 500 mg PO BID 10/23/22 10/23/22 History Allergies Allergy/AdvReac Type Severity Reaction Status Date / Time No Known Allergies Allergy Verified 10/23/22 21:52 Physical Exam Vitals: Vital Signs Temp Pulse Pulse Resp BP BP Pulse Ox 10/24/22 06:49 98.3 F 73 20 110/54 99 10/24/22 02:37 98.7 F 87 18 115/53 100 10/23/22 21:00 83 16 118/75 99 10/23/22 20:00 92 16 112/61 100 10/23/22 18:24 98 F 90 22 146/77 99 Intake and Output 10/23/22 10/24/22 10/24/22 22:59 06:59 14:59 Intake Total 450 Balance 450 Intake: Oral 450 Other: Voiding Method Toilet # Voids 2 Weight 72.575 kg Results CBC & Chem 7: 10/23/22 19:21 10/24/22 04:57 Labs: Abnormal Lab Results - Last 24 Hours (Table) 10/23/22 10/23/22 10/23/22 Range/Units 19:21 19:21 19:21 RBC 4.19 L (4.30-5.90) m/uL Lymphocytes # 0.9 L (1.0-4.8) k/uL Sodium 129 L (137-145) mmol/L Chloride 95 L (98-107) mmol/L Glucose 110 H (74-99) mg/dL Plasma Lactic Acid Tom 2.4 H* (0.7-2.0) mmol/L Calcium (8.4-10.2) mg/dL 10/24/22 Range/Units 04:57 RBC (4.30-5.90) m/uL Lymphocytes # (1.0-4.8) k/uL Sodium 131 L (137-145) mmol/L Chloride (98-107) mmol/L Glucose 120 H (74-99) mg/dL Plasma Lactic Acid Tom (0.7-2.0) mmol/L Calcium 8.3 L (8.4-10.2) mg/dL Assessment and Plan Plan: 1patient with extensive rash involving bilateral lower extremity with dry scaly skin and also maculopapular rash to the upper back and chest area not involving the palms and soles the question of possible drug rash versus fungal dermatitis clinic in the beginning of a bacterial cellulitis in this patient with no fever or elevated white count 2we will do a complete rheumatological workup 3-patient benefit from dermatology evaluation for possible biopsy 4 will apply Mycolog cream to the rash continue vancomycin for now to the cultures are finalized 5 - recommend discontinuation of lisinopril has maybe causing the rash We will follow on clinical condition and cultures to further adjust medication if needed Thank you for this consultation will follow this patient with you Time with Patient: Greater than 30
[2022-10-24] MEDS ORDERED: ATORVASTATIN 20 MG TAB PO SCH (21:00)
[2022-10-24] MEDS ORDERED: GABAPENTIN 100 MG CAP PO SCH (21:00)
[2022-10-25] MEDS: SODIUM CHLORIDE 0.9% 1,000 ML IV SCH ×2 (02:17→11:49)
[2022-10-25 06:52] LABS: African American GFR (CKD) >90 (>60 ml/min/1.73 sqM); Anion Gap 5 mmol/L; Blood Urea Nitrogen 9 mg/dL (9-20); Calcium 8.2 mg/dL (8.4-10.2); Carbon Dioxide 22 mmol/L (22-30); Chloride 106 mmol/L (98-107); Glucose 145 mg/dL (74-99); Non-African American GFR(CKD) >90 (>60 ml/min/1.73 sqM); Potassium 4.3 mmol/L (3.5-5.1); Sodium 133 mmol/L (137-145)
[2022-10-25] MEDS ORDERED: VANCOMYCIN TROUGH DUE 1 EACH MISC MISCELLANE ONE (07:00)
[2022-10-25 07:09] LABS: Glucose,Whole Blood 138 mg/dL (70-110)
[2022-10-25] MEDS: INSULIN ASPART (NovoLOG) 100 UNIT/ML VIAL SQ SCH ×2 (07:37→11:29)
[2022-10-25 07:43] VITALS: RESP 20
[2022-10-25] MEDS: THIAMINE 100 MG TAB PO SCH (08:39)
[2022-10-25] MEDS: FLUCONAZOLE 100 MG TAB PO SCH (08:40)
[2022-10-25] MEDS: VANCOMYCIN 1,250 MG in SODIUM CHLORIDE 0.9% 250 ML IVPB SCH (08:40)
[2022-10-25] MEDS ORDERED: CLOPIDOGREL 75 MG TAB PO SCH (09:00)
[2022-10-25] MEDS ORDERED: lisinopriL 5 MG TAB PO SCH (09:00)
[2022-10-25] MEDS ORDERED: amLODIPine 10 MG TAB PO SCH (09:00)
[2022-10-25] MEDS ORDERED: FOLIC ACID 1 MG TAB PO SCH (09:00)
[2022-10-25] MEDS ORDERED: ASPIRIN 81 MG PO SCH (09:00)
[2022-10-25] MEDS ORDERED: CHOLECALCIFEROL 125 MCG (5000 IU) TABLET PO SCH (09:00)
[2022-10-25] MEDS: NYSTATIN 100,000UNIT/GM CREAM 30 GM TUBE TOPICAL SCH (09:37)
[2022-10-25] MEDS: TRIAMCINOLONE 0.1% CREAM 80 GM TUBE TOPICAL SCH (09:38)
[2022-10-25 11:07] LABS: Glucose,Whole Blood 110 mg/dL (70-110)
[2022-10-25 12:08] VITALS: BP 131/75; PULSE 97; TEMP 98.2
--- NOTE | 2022-10-25 12:27 | P.DS ---
Providers Date of admission: 10/23/22 21:30 Expected date of discharge: 10/25/22 Attending physician: Elba Cameron Consults: 10/23/22 20:28 Consult Physician Urgent Consulting Provider: Kath Judge Consult Reason/Comments: cellulitis Do you want consulting provider notified?: Yes 10/24/22 13:07 Consult Physician Routine Consulting Provider: Tita Aguayo Consult Reason/Comments: Skin rash Do you want consulting provider notified?: Yes Primary care physician: Stated None Hospital Course: Discharge diagnoses; bilateral lower extremity cellulitis Skin rash [id number] diabetes mellitus Hypertension Hyponatremia ALLERGIC reaction to lisinopril Hospital course; patient is 67-year-old gentleman with past medical significant for hypertension, diabetes mellitus who presented to the ER because of a rash of lower extremities. Patient has been on Keflex outpatient for treatment of cellulitis but states that has been worsening. Denies any fever or chills. Does complain of itchiness over lower extremities. Patient also has some rash over his back and front of chest. 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 Patient was started IV antibiotics and was admitted to hospitalist service. Patient also had rash on the chest as well as back. ID evaluated the patient recommended discontinuing antibiotics, don't think it is cellulitis, rash could be secondary to lisinopril. Will give patient Medrol Dosepak and will give referral to The patient outpatient to dermatology PHYSICAL EXAMINATION: GENERAL: The patient is alert and oriented x3, not in any acute distress. Well developed, well nourished. HEENT: Pupils are round and equally reacting to light. EOMI. No scleral icterus. No conjunctival pallor. Normocephalic, atraumatic. No pharyngeal erythema. No thyromegaly. CARDIOVASCULAR: S1 and S2 present. No murmurs, rubs, or gallops. PULMONARY: Chest is clear to auscultation, no wheezing or crackles. ABDOMEN: Soft, nontender, nondistended, normoactive bowel sounds. No palpable organomegaly. MUSCULOSKELETAL: No joint swelling or deformity. EXTREMITIES: No cyanosis, clubbing, or pedal edema. NEUROLOGICAL: Gross neurological examination did not reveal any focal deficits. SKIN: Rash on the back and chest has improved. Redness of lower extremities also improved Patient Condition at Discharge: Good Plan - Discharge Summary Discharge Rx Participant: No New Discharge Prescriptions: New methylPREDNISolone Dose Pack [Medrol Dose Pack] 4 mg PO DIRECTED #21 tab Triamcinolone 0.1% Cream [Kenalog 0.1% Cream] 1 applic TOPICAL BID #1 each Continue Folic Acid 1 mg PO DAILY #30 tab Thiamine [Vitamin B-1] 100 mg PO BID-W/MEALS #60 tab Nystatin 100,000Unit/gm Cream [Mycostatin Cream] 1 applic TOPICAL BID Cholecalciferol (Vitamin D3) [Vitamin D3 (125 MCG = 5,000 IU)] 125 mcg PO DAILY metFORMIN HCL [Glucophage] 500 mg PO BID Furosemide [Lasix] 20 mg PO DAILY PRN PRN Reason: Edema Gabapentin [Neurontin] 200 mg PO HS Aspirin 81 mg PO DAILY #30 Atorvastatin [Lipitor] 20 mg PO HS #30 tab amLODIPine [Norvasc] 10 mg PO DAILY #30 tab Clopidogrel [Plavix] 75 mg PO DAILY #21 tab Discontinued lisinopriL [Zestril] 5 mg PO DAILY #30 tab Cephalexin [Keflex] 500 mg PO Q6HR Discharge Medication List Aspirin 81 mg PO DAILY #30 02/18/22 [Rx] Atorvastatin [Lipitor] 20 mg PO HS #30 tab 02/18/22 [Rx] Clopidogrel [Plavix] 75 mg PO DAILY #21 tab 02/18/22 [Rx] Folic Acid 1 mg PO DAILY #30 tab 02/18/22 [Rx] Thiamine [Vitamin B-1] 100 mg PO BID-W/MEALS #60 tab 02/18/22 [Rx] amLODIPine [Norvasc] 10 mg PO DAILY #30 tab 02/18/22 [Rx] Cholecalciferol (Vitamin D3) [Vitamin D3 (125 MCG = 5,000 IU)] 125 mcg PO DAILY 10/23/22 [History] Furosemide [Lasix] 20 mg PO DAILY PRN 10/23/22 [History] Gabapentin [Neurontin] 200 mg PO HS 10/23/22 [History] Nystatin 100,000Unit/gm Cream [Mycostatin Cream] 1 applic TOPICAL BID 10/23/22 [History] metFORMIN HCL [Glucophage] 500 mg PO BID 10/23/22 [History] Triamcinolone 0.1% Cream [Kenalog 0.1% Cream] 1 applic TOPICAL BID #1 each 10/25/22 [Rx] methylPREDNISolone Dose Pack [Medrol Dose Pack] 4 mg PO DIRECTED #21 tab 10/25/22 [Rx] Follow up Appointment(s)/Referral(s): Tita Aguayo MD [STAFF PHYSICIAN] - 1 Week None,Stated [Primary Care Provider] - 1-2 days Discharge Disposition: HOME SELF-CARE
[2022-10-25 14:58] LABS: C-ANCA <1:20 Titer (<1:20)
[2022-10-25 15:07] LABS: APTT 38 Sec(s) (<43); Dilute Russell Viper Venom 36 Sec(s) (<44)
[2022-10-25] MEDS ORDERED: VANCOMYCIN 1,000 MG in SODIUM CHLORIDE 0.9% 250 ML IVPB SCH (21:00)
== END 2022-10-25 14:13 | disposition home or self-care (01) | DRG 603 ==
LOC: EC 18:21 → 5NMEDONC 21:30
PROVIDERS: ADMIT Hospitalist; ATTEND Hospitalist
DX: L03.116 Cellulitis of left lower limb (principal); E87.1 Hypo-osmolality and hyponatremia; L03.115 Cellulitis of right lower limb; I10 Essential (primary) hypertension; R21 Rash and other nonspecific skin eruption; E66.9 Obesity, unspecified; E11.9 Type 2 diabetes mellitus without complications; Z68.26 Body mass index [BMI] 26.0-26.9, adult; Z86.73 Personal history of transient ischemic attack (TIA), and cerebral infarction without residual deficits; Z79.899 Other long term (current) drug therapy; Z79.84 Long term (current) use of oral hypoglycemic drugs; Z79.82 Long term (current) use of aspirin; Z79.02 Long term (current) use of antithrombotics/antiplatelets; Z28.310 Unvaccinated for COVID-19
CPT/HCPCS: 36415; 80048; 80053; 80202; 83036; 83605; 85025; 85613; 85652; 85730; 86038; 86140; 86160; 86162; 86255; 86431; 87040; 96365; 96366; 96367; 99284

== ENCOUNTER 2024-07-07 09:23 | Emergency (ER) | payer MEDICARE, OTHER ==
[2024-07-07 09:31] VITALS: TEMP 98
[2024-07-07] MEDS: KETOROLAC 15 MG/ML 1 ML VIAL IVP STA (10:07)
[2024-07-07 10:12] LABS: Basophils % (A) 0 %; Eosinophils # (A) 0.2 k/uL (0-0.7); Eosinophils % (A) 2 %; HCT 39.1 % (39.0-53.0); Lymphocytes # (A) 0.6 k/uL (1.0-4.8); Lymphocytes % (A) 5 %; MCH 31.6 pg (25.0-35.0); MCHC 33.2 g/dL (31.0-37.0); MCV 95.2 fL (80.0-100.0); Mean Platelet Volume 6.8; Monocytes # (A) 0.5 k/uL (0-1.0); Monocytes % (A) 4 %; Neutrophils # (A) 9.6 k/uL (1.3-7.7); Neutrophils % (A) 88 %; Platelet Count 246 k/uL (150-450); RBC 4.11 m/uL (4.30-5.90); RDW 12.2 % (11.5-15.5); WBC 10.9 k/uL (3.8-10.6)
[2024-07-07 10:27] LABS: ALT 12 U/L (4-49); AST 19 U/L (17-59); African American GFR (CKD) >90 (>60 ml/min/1.73 sqM); Albumin 3.7 g/dL (3.5-5.0); Alkaline Phosphatase 139 U/L (38-126); Anion Gap 6 mmol/L; Blood Urea Nitrogen 9 mg/dL (9-20); Calcium 9.2 mg/dL (8.4-10.2); Carbon Dioxide 23 mmol/L (22-30); Chloride 104 mmol/L (98-107); Glucose 132 mg/dL (74-99); Non-African American GFR(CKD) >90 (>60 ml/min/1.73 sqM); Potassium 4.1 mmol/L (3.5-5.1); Sodium 133 mmol/L (137-145); Total Bilirubin 1.3 mg/dL (0.2-1.3); Total Protein 7.1 g/dL (6.3-8.2)
--- NOTE | 2024-07-07 10:56 | ED ---
ENT HPI - General Chief complaint: Dental/Oral Stated complaint: Absess tooth Time Seen by Provider: 07/07/24 10:56 Source: patient, RN notes reviewed Mode of arrival: ambulatory Limitations: no limitations - History of Present Illness Initial comments: 68-year-old male presented to the ER with a chief complaint of a dental infection. Patient states 3 days ago he started to notice swelling and tenderness to his right cheek. He reports he has not followed up with a dentist and has poor dental hygiene. He does report swelling has increased to involve his right cheek up into his eye. Denies any fevers or chills. - Related Data Home Medications Medication Instructions Recorded Confirmed Cholecalciferol (Vitamin D3) 125 mcg PO DAILY 10/23/22 10/23/22 [Vitamin D3 (125 MCG = 5,000 IU)] Furosemide [Lasix] 20 mg PO DAILY PRN 10/23/22 10/23/22 Gabapentin [Neurontin] 200 mg PO HS 10/23/22 10/23/22 Nystatin 100,000Unit/gm Cream 1 applic TOPICAL BID 10/23/22 10/23/22 [Mycostatin Cream] metFORMIN HCL [Glucophage] 500 mg PO BID 10/23/22 10/23/22 Previous Rx's Medication Instructions Recorded Aspirin 81 mg PO DAILY #30 02/18/22 Atorvastatin [Lipitor] 20 mg PO HS #30 tab 02/18/22 Clopidogrel [Plavix] 75 mg PO DAILY #21 tab 02/18/22 Folic Acid 1 mg PO DAILY #30 tab 02/18/22 Thiamine [Vitamin B-1] 100 mg PO BID-W/MEALS #60 tab 02/18/22 amLODIPine [Norvasc] 10 mg PO DAILY #30 tab 02/18/22 Triamcinolone 0.1% Cream [Kenalog 1 applic TOPICAL BID #1 each 10/25/22 0.1% Cream] methylPREDNISolone Dose Pack 4 mg PO DIRECTED #21 tab 10/25/22 [Medrol Dose Pack] Amoxic-Pot Clav 875-125Mg 1 tab PO Q12HR #20 tab 07/07/24 [Augmentin 875-125] Allergies Allergy/AdvReac Type Severity Reaction Status Date / Time No Known Allergies Allergy Verified 07/07/24 09:31 Review of Systems ROS Statement: Those systems with pertinent positive or pertinent negative responses have been documented in the HPI. ROS Other: All systems not noted in ROS Statement are negative. Past Medical History Past Medical History: CVA/TIA, Hypertension History of Any Multi-Drug Resistant Organisms: None Reported Past Surgical History: No Surgical Hx Reported Additional Past Surgical History / Comment(s): bilateral cataract surgery Past Anesthesia/Blood Transfusion Reactions: No Reported Reaction Past Psychological History: No Psychological Hx Reported Smoking Status: Never smoker Past Alcohol Use History: Daily, Heavy Past Drug Use History: None Reported - Past Family History Father Family Medical History: Congestive Heart Failure (CHF) General Exam Limitations: no limitations General appearance: alert, in no apparent distress Head exam: Present: atraumatic, normocephalic, normal inspection ENT exam: Present: normal exam, mucous membranes moist, other (Multiple dental caries and fractured teeth. No drainable abscess observed. Significant facial swelling/tenderness to the right cheek extending inferior to eye) Neck exam: Present: normal inspection. Absent: tenderness, meningismus, lymphadenopathy Respiratory exam: Present: normal lung sounds bilaterally. Absent: respiratory distress, wheezes, rales, rhonchi, stridor Cardiovascular Exam: Present: regular rate, normal rhythm, normal heart sounds. Absent: systolic murmur, diastolic murmur, rubs, gallop, clicks Neurological exam: Present: alert, oriented X3, CN II-XII intact Skin exam: Present: warm, dry, intact, normal color. Absent: rash Course Vital Signs 07/07/24 07/07/24 09:27 12:37 Temperature 98.0 F Pulse Rate 100 84 Respiratory 18 16 Rate Blood Pressure 147/68 135/76 O2 Sat by Pulse 99 99 Oximetry Medical Decision Making - Medical Decision Making Was pt. sent in by a medical professional or institution (, PA, STRIP MILL OPERATOR, urgent care, hospital, or [facility]...) When possible be specific @ -No Did you speak to anyone other than the patient for history (EMS, parent, family, police, friend...)? What history was obtained from this source @ -No Did you review nursing and triage notes (agree or disagree)? Why? @ -I reviewed and agree with nursing and triage notes Were old charts reviewed (outside hosp., previous admission, EMS record, old EKG, old radiological studies, urgent care reports/EKG's, [facility] records)? Report findings @ -No old charts were reviewed Differential Diagnosis (chest pain, altered mental status, abdominal pain women, abdominal pain men, vaginal bleeding, weakness, fever, dyspnea, syncope, headache, dizziness, GI bleed, back pain, seizure, CVA, palpatations, mental health, musculoskeletal)? @ -Dental abscess, fractured tooth, retropharyngeal abscess, this is not meant to be all-inclusive EKG interpreted by me (3pts min.). @ -[None done X-rays interpreted by me (1pt min.). @ -None done CT interpreted by me (1pt min.). @ -CT soft tissue neck showing a 2.1 cm soft tissue mass in the area of clinical concern in the anterior soft tissues overlying the right upper mandible. Lymphadenopathy or neoplasm is not excluded. No underlying osseous abnormality. U/S interpreted by me (1pt. min.). @ -None done What testing was considered but not performed or refused? (CT, X-rays, U/S, labs)? Why? @ -None What meds were considered but not given or refused? Why? @ -None Did you discuss the management of the patient with other professionals (professionals i.e. , PA, STRIP MILL OPERATOR, lab, RT, psych nurse, social service worker, wood router, teacher, staff air tactical officer, manager case)? Give summary @ -No Was smoking cessation discussed for >3mins.? @ -No Was critical care preformed (if so, how long)? @ -No Were there social determinants of health that impacted care today? How? (Homeles sness, low income, unemployed, alcoholism, drug addiction, transportation, low edu. Level, literacy, decrease access to med. care, long-term, rehab)? @ -No Was there de-escalation of care discussed even if they declined (Discuss DNR or withdrawal of care, Hospice)? DNR status @ -No What co-morbidities impacted this encounter? (DM, HTN, Smoking, COPD, CAD, Cancer, CVA, ARF, Chemo, Hep., AIDS, mental health diagnosis, sleep apnea, morbid obesity)? @ -None Was patient admitted / discharged? Hospital course, mention meds given and route, prescriptions, significant lab abnormalities, going to OR and other pertinent info. @ -Discharge. 68-year-old male presented to ER with a chief complaint of right facial swelling. History and physical exam completed. Vitals within normal limits. Patient in no signs of acute distress and nontoxic-appearing. There is significant edema to the right cheek with overlying erythema. Poor dentition but no drainable abscesses present. Tenderness to right cheek. Oropharynx patent no signs of respiratory distress. Due to concern of abscess laboratory studies and CT scan will be obtained, patient is agreeable to this. Laboratory studies remarkable for a WBC 10.9 with a left shift of 9.6. CMP unremarkable. CT soft tissue neck showed a 2.1 cm soft tissue mass in the area clinical send the anterior soft tissues overlying the right upper mandible. Patient received IV Toradol and Decadron in the ER for symptom control. Upon reevaluation, patient resting comfortably exam and no signs of acute distress. Results discussed with patient, all questions answered. I advised extremely close follow-up with PCP for further evaluation as mass cannot be ruled out. Due to concern of dental infection caused by poor dental hygiene patient will be started on Augmentin, first dose in the ER. Tylenol 3 starter pack given. Strict return parameters discussed. Discussed at length for patient to follow- up closely with PCP for further evaluation of this mass. I also advise close follow-up with dentist, referral given. Patient displayed medical decision-m aking capabilities and verbally expressed understanding and agreement with care plan. Patient discharged in stable condition. Case discussed with ED attending, Dr. David. Undiagnosed new problem with uncertain prognosis? @ -No Drug Therapy requiring intensive monitoring for toxicity (Heparin, Nitro, Insulin, Cardizem)? @ -No Were any procedures done? @ -No Diagnosis/symptom? @ -Dental infection/soft tissue mass Acute, or Chronic, or Acute on Chronic? @ -Acute Uncomplicated (without systemic symptoms) or Complicated (systemic symptoms)? @ -Uncomplicated Side effects of treatment? @ -No Exacerbation, Progression, or Severe Exacerbation? @ -No Poses a threat to life or bodily function? How? (Chest pain, [place], [place], pneumonia, PE, COPD, DKA, ARF, appy, cholecystitis, CVA, Diverticulitis, Homicidal, Suicidal, threat to staff... and all critical care pts) @ -No - Lab Data Result diagrams: 07/07/24 09:46 07/07/24 09:46 Lab Results 07/07/24 07/07/24 07/07/24 Range/Units 09:46 09:46 09:46 WBC 10.9 H (3.8-10.6) k/uL RBC 4.11 L (4.30-5.90) m/uL Hgb 13.0 (13.0-17.5) gm/dL Hct 39.1 (39.0-53.0) % MCV 95.2 (80.0-100.0) fL MCH 31.6 (25.0-35.0) pg MCHC 33.2 (31.0-37.0) g/dL RDW 12.2 (11.5-15.5) % Plt Count 246 (150-450) k/uL MPV 6.8 Neutrophils % 88 % Lymphocytes % 5 % Monocytes % 4 % Eosinophils % 2 % Basophils % 0 % Neutrophils # 9.6 H (1.3-7.7) k/uL Lymphocytes # 0.6 L (1.0-4.8) k/uL Monocytes # 0.5 (0-1.0) k/uL Eosinophils # 0.2 (0-0.7) k/uL Basophils # 0.0 (0-0.2) k/uL Sodium 133 L (137-145) mmol/L Potassium 4.1 (3.5-5.1) mmol/L Chloride 104 (98-107) mmol/L Carbon Dioxide 23 (22-30) mmol/L Anion Gap 6 mmol/L BUN 9 (9-20) mg/dL Creatinine 0.86 (0.66-1.25) mg/dL Est GFR (CKD-EPI)AfAm >90 (>60 ml/min/1.73 sqM) Est GFR (CKD-EPI)NonAf >90 (>60 ml/min/1.73 sqM) Glucose 132 H (74-99) mg/dL Plasma Lactic Acid Tom 0.8 (0.7-2.0) mmol/L Calcium 9.2 (8.4-10.2) mg/dL Total Bilirubin 1.3 (0.2-1.3) mg/dL AST 19 (17-59) U/L ALT 12 (4-49) U/L Alkaline Phosphatase 139 H (38-126) U/L Total Protein 7.1 (6.3-8.2) g/dL Albumin 3.7 (3.5-5.0) g/dL - Radiology Data Radiology results: report reviewed, image reviewed Disposition Clinical Impression: Dental infection, Soft tissue mass Disposition: HOME SELF-CARE Condition: Stable Instructions (If sedation given, give patient instructions): Dental Abscess (ED) Additional Instructions: Complete full course of Augmentin. Follow-up with a dentist as soon as possible. Have a low threshold of returning to the ER for any new onset chills, fevers, increasing swelling to the cheek or throat. Prescriptions: Amoxic-Pot Clav 875-125Mg [Augmentin 875-125] 1 tab PO Q12HR #20 tab Is patient prescribed a controlled substance at d/c from ED?: No Referrals: Reji Saenz DO [Primary Care Provider] - 1-2 days Kareem Stewart DDS [STAFF PHYSICIAN] - 1-2 days Idania Gavin DDS [STAFF PHYSICIAN] - 1-2 days Time of Disposition: 11:35
--- NOTE | 2024-07-07 11:12 | CT ---
EXAMINATION TYPE: CT soft tissue neck w con DATE OF EXAM: 07/07/2024 10:52 AM COMPARISON: None HISTORY: INFECTED TOOTH CT DLP: 255 mGycm Automated exposure control for dose reduction was used. CONTRAST: CT scan of the neck is performed following with IV Contrast, patient injected with 100 mL of Isovue 3 00. Axial images are obtained, coronal and sagittal reformatted images are reviewed. Findings: In the anterior soft tissues adjacent to the right aspect of the upper mandible there is a 2.1 cm sof t tissue density/mass. No underlying osseous abnormality. There is no discrete abscess. The thyroid gland is not enlarged and there are no focal masses. The larynx including the thyroid, arytenoid, cricoid cartilages as well as the vocal cords are normal and symmetric without laryngeal mass. The tongue base, epiglottis, aryepiglottic folds, piriform sinuses and vallecula are normal and symme tric. There is no oral or nasal pharyngeal or parapharyngeal or pharyngeal soft tissue mass or enhancement. The submandibular glands and parotid glands are normal and symmetric. The great vessels of the neck are normal. There is no adenopathy or abscess within the neck. Visualized osseous structures are intact. There are mild chronic inflammatory changes in the maxillary sinuses. The mastoid air cells and middl e ear cavities are well aerated. IMPRESSION: 2.1 cm soft tissue mass in the area of clinical concern in the anterior soft tissues overlying the ri ght upper mandible. Lymphadenopathy or neoplasm is not excluded and further evaluation is warranted. No underlying osseous abnormality. [facility], , 07/07/2024 11:10 AM
[2024-07-07] MEDS: ACET/COD 300 MG/30 MG STARTER PACK 6 TAB BTL PO STA (12:28)
[2024-07-07] MEDS: DEXAMETHASONE SOD PHOSPHATE 4 MG/ML 1 ML VIAL IVP STA (12:29)
[2024-07-07] MEDS: AMOXIC-POT CLAV 875-125MG 1 EACH TAB PO STA (12:29)
[2024-07-07 12:38] VITALS: BP 135/76; PULSE 84; RESP 16
== END 2024-07-07 12:38 | disposition home or self-care (01) ==
LOC: EC 09:23
CPT/HCPCS: 36415; 70491; 80053; 83605; 85025; 96374; 96375; 99284

== ENCOUNTER 2024-12-31 08:46 | Day surgery (SDC) | payer MEDICARE, OTHER ==
[2024-12-30 09:20] VITALS: BMI 25.7
[~2024-12-31 08:46] MED LIST: LACTATED RINGERS 1,000 ML IV SCH
[2024-12-31 09:39] VITALS: TEMP 97.2
[2024-12-31] MEDS: IV FLUID CONTINUATION 1,000 ML IV ONE (09:47)
[2024-12-31] MEDS ORDERED: PROPOFOL 10 MG/ML 20 ML VIAL IV ONE (10:15)
--- NOTE | 2024-12-31 10:31 | P.PCN ---
Date of Procedure: 12/31/24 Procedure(s) Performed: BRIEF HISTORY: Patient is a 69-year-old pleasant white male scheduled for an elective colonoscopy as a part of screening for history of colon polyps. Last colonoscopy was in 2016 and was noted to have a tubular adenoma. PROCEDURE PERFORMED: Colonoscopy. PREOPERATIVE DIAGNOSIS: Screening for history of colon polyps. IV sedation per Anesthesia. PROCEDURE: After informed consent was obtained, the patient, was brought into the endoscopy unit. IV sedation was administered by Anesthesia under continuous monitoring. Digital rectal examination was normal. Initially the Olympus CF-160 flexible video colonoscope was then inserted in the rectum, gradually advanced into the cecum without any difficulty. Careful examination was performed as the scope was gradually being withdrawn. Ileocecal valve and the appendiceal orifice were visualized and appeared normal. Prep was excellent. Mucosa of the cecum, ascending colon, transverse colon, descending colon, sigmoid colon, and rectum appeared normal. Retroflexion was performed in the rectum and no lesions were seen. The patient tolerated the procedure well. IMPRESSION: Normal-appearing colon from rectum to cecum with no evidence of colorectal neoplasia. RECOMMENDATIONS: Findings of this examination were discussed with the patient as well as his family. He was advised to have repeat screening colonoscopy in 10 years..
[2024-12-31 10:37] VITALS: RESP 18
[2024-12-31 10:55] VITALS: BP 116/78; PULSE 68
== END 2024-12-31 11:18 | disposition home or self-care (01) ==
LOC: ORWHC2ENDO 08:46
PROVIDERS: ATTEND Internal Medicine Gastroenterology
DX: Z12.11 Encounter for screening for malignant neoplasm of colon (principal); I10 Essential (primary) hypertension; E78.5 Hyperlipidemia, unspecified; K21.9 Gastro-esophageal reflux disease without esophagitis; F10.90 Alcohol use, unspecified, uncomplicated; Z79.82 Long term (current) use of aspirin; Z86.73 Personal history of transient ischemic attack (TIA), and cerebral infarction without residual deficits; Z79.899 Other long term (current) drug therapy; Z86.0101 Personal history of adenomatous and serrated colon polyps
CPT/HCPCS: J2704; G0105